=== PATIENT | female | born 1935 | race Caucasian/White ===

== ENCOUNTER 2019-09-19 08:47 | Emergency (ER) | payer MEDICARE ==
--- NOTE | 2019-09-19 09:45 | EKG REPORT ---
SEVERITY:- BORDERLINE ECG - SINUS RHYTHM BORDERLINE T ABNORMALITIES, ANTERIOR LEADS : Confirmed by: Olya San MD 19-Sep-2019 09:44:29
[2019-09-19 10:09] LABS: ABSOLUTE LYMPHOCYTES (AUTO) 0.7 10^3/uL (0.5-4.7); ABSOLUTE MONOCYTES (AUTO) 1.2 10^3/uL (0.1-1.4); ABSOLUTE NEUT (AUTO) 7.5 10^3/uL (1.7-8.2); BASOPHILS % (AUTO) 0.1 % (0-2); HEMATOCRIT 36.2 % (36.0-47.0); HEMOGLOBIN 12.1 g/dL (12.0-15.5); LYMPHOCYTES % (AUTO) 7.1 % (13-45); MEAN CORPUSCULAR HEMOGLOBIN 28.4 pg (27.0-33.4); MEAN CORPUSCULAR HGB CONC 33.5 g/dL (32.0-36.0); MEAN CORPUSCULAR VOLUME 85 fl (80-97); PLATELET COUNT 136 10^3/uL (150-450); RED BLOOD COUNT 4.27 10^6/uL (3.72-5.28); RED CELL DISTRIBUTION WIDTH 14.9 % (11.5-14.0); SEGMENTED NEUTROPHILS % (AUTO) 79.8 % (42-78); TOTAL CELLS COUNTED % (AUTO) 100 %; WHITE BLOOD COUNT 9.4 10^3/uL (4.0-10.5)
[2019-09-19 10:20] LABS: ALBUMIN 4.3 g/dL (3.5-5.0); ALKALINE PHOSPHATASE 65 U/L (38-126); ANION GAP 8 (5-19); ASPARTATE AMINO TRANSFERASE 32 U/L (14-36); BLOOD UREA NITROGEN 33 mg/dL (7-20); CALCIUM 9.1 mg/dL (8.4-10.2); CARBON DIOXIDE 28 mmol/L (22-30); CHLORIDE 103 mmol/L (98-107); CREATINE KINASE 33 U/L (30-135); GLUCOSE 141 mg/dL (75-110); TOTAL PROTEIN 7.1 g/dL (6.3-8.2)
[2019-09-19 10:32] LABS: CREATINE KINASE MB 0.61 ng/mL (<4.55)
[2019-09-19 10:33] LABS: TROPONIN I < 0.012 ng/mL
--- NOTE | 2019-09-19 11:04 | ER Document Report ---
ED General - General Chief Complaint: Epigastric Pain Stated Complaint: CHEST PRESSURE/NAUSEA/HEADACHE Primary Care Provider: CAMRON HASTINGS MD [Primary Care Provider] - Follow up as needed Mode of Arrival: Ambulatory Information source: Patient, Relative Notes: Patient is an 83-year-old female presenting to the emergency department chief complaint of chest pain and epigastric pain for the past 3 to 4 days. Patient states she has been under a lot more stress recently. Patient states that sev dominguez younger relatives have come up for a visit they came from [place] she is concerned for possible cold exposure however when talking to the patient's daughter neither of the individuals that came up had any symptomatology. Patient does have a prior history of atrial fibrillation and pacemaker placement. Patient did skip 1 of her anticoagulant pills the other day because she had dark circles around her eyes but otherwise has been taking medications as prescribed. Patient denies nausea vomiting diarrhea fevers chills cough or cold symptoms she relates mild to moderate epigastric and chest pain. TRAVEL OUTSIDE OF THE [place] IN LAST 30 DAYS: No - HPI Onset: Last week Onset/Duration: Gradual, Persistent Quality of pain: Achy, Pressure Severity: Moderate Pain Level: 2 Associated symptoms: denies: Nonproductive cough, Productive cough, Diarrhea, Nausea, Vomiting, Shortness of breath Exacerbated by: Denies Relieved by: Denies Similar symptoms previously: No Recently seen / treated by doctor: No - Related Data Allergies/Adverse Reactions: Penicillins Allergy (Unknown, Verified 09/19/19 08:58) cephalexin monohydrate [From Keflex] Allergy (Verified 09/19/19 08:58) codeine [Codeine] Allergy (Verified 09/19/19 08:58) povidone-iodine [From Betadine] Allergy (Verified 09/19/19 08:58) Soap [From Betadine] Allergy (Verified 09/19/19 08:58) tetracycline [Tetracycline] Allergy (Verified 09/19/19 08:58) Home Medications: eliquis. metoprolol. claritin. vitamins. gerd medication Past Medical History - General Information source: Patient, Relative - Social History Smoking Status: Former Smoker Chew tobacco use (# tins/day): No Frequency of alcohol use: None Drug Abuse: None Lives with: Family Family History: Reviewed & Not Pertinent Patient has suicidal ideation: No Patient has homicidal ideation: No - Past Medical History Cardiac Medical History: Reports: Hx Atrial Fibrillation Denies: Hx Heart Attack, Hx Hypertension Pulmonary Medical History: Reports: Hx Pneumonia Denies: Hx Asthma, Hx Tuberculosis Neurological Medical History: Denies: Hx Cerebrovascular Accident, Hx Seizures GI Medical History: Reports: Hx Gastroesophageal Reflux Disease. Denies: Hx Hepatitis, Hx Hiatal Hernia, Hx Ulcer Musculoskeletal Medical History: Reports Hx Arthritis Psychiatric Medical History: Reports: Hx Depression Infectious Medical History: Denies: Hx Hepatitis Past Surgical History: Reports: Hx Appendectomy, Hx Hysterectomy. Denies: Hx Open Heart Surgery, Hx Pacemaker - Immunizations Hx Diphtheria, Pertussis, Tetanus Vaccination: No Review of Systems - Review of Systems Notes: REVIEW OF SYSTEMS: CONSTITUTIONAL : Denies fever, chills, or sweats. Denies recent illness. EENT: Denies eye, ear, throat, or mouth pain or symptoms. Denies nasal or sinus congestion. CARDIOVASCULAR: Per HPI RESPIRATORY: Denies cough, cold, or chest congestion. Denies shortness of breath, difficulty breathing, or wheezing. GASTROINTESTINAL: Per HPI GENITOURINARY: Denies difficulty urinating, painful urination, burning, frequency, or blood in urine. MUSCULOSKELETAL: Denies neck or back pain or joint pain or swelling. SKIN: Denies rash or skin lesions. HEMATOLOGIC : Denies easy bruising or bleeding. NEUROLOGICAL: Denies altered mental status or loss of consciousness. Denies headache. Denies weakness or paralysis or loss of use of either side. Denies problems with gait or speech. Denies sensory or motor loss. PSYCHIATRIC: Denies suicidal or homicidal ideations 10 Systems are negative unless otherwise specified above Physical Exam - Vital signs Vitals: Temp Pulse Resp BP Pulse Ox 98.0 F 72 20 151/56 H 97 09/19/19 08:58 09/19/19 08:58 09/19/19 08:58 09/19/19 08:58 09/19/19 08:58 - Notes Notes: PHYSICAL EXAMINATION: GENERAL: Well-appearing, well-nourished and in no acute distress. HEAD: Atraumatic, normocephalic. EYES: Pupils equal round and reactive to light, extraocular movements intact, sclera anicteric, conjunctiva are normal. ENT: nares patent, oropharynx clear without exudates. Moist mucous membranes. NECK: Normal range of motion, supple without lymphadenopathy, no appreciable JVD LUNGS: Lungs clear to auscultation bilaterally and equal. No wheezes rales or rhonchi. HEART: Regular rate and rhythm without murmurs ABDOMEN: Soft, nontender, normal bowel sounds. No guarding, no rebound. No masses appreciated. EXTREMITIES: Active full range of motion, no pitting or edema. No cyanosis. 2+ pulses x4 NEUROLOGICAL: No focal neurological deficits. Moves all extremities spontaneously and on command. SKIN: Warm, Dry, and intact. Normal turgor, no rashes or lesions noted. Course - Re-evaluation Re-evalutation: 09/19/19 12:58 Patient has been maintained in the emergency department on a panel monitor while present. Patient has been reevaluated several times while in the emergency department and no signs of decompensation have been noted. After evaluation of laboratory EKG and radiologic studies I see no signs of pneumonia, pneumothorax, acute myocardial infarction, unstable angina dissection or pulmonary embolism, there are no signs of rib fractures, no signs of acute coronary syndrome and at this time feel the patient is stable for discharge. I have discussed these results with the patient answered all questions and patient is agreeable with discharge at this time. Patient should follow-up with her primary care provider in the next several days for continued monitoring. Patient should immediately return to the emergency department for worsening symptoms to include severe chest pain/tightness or discomfort, worsening shortness of breath, fever greater than 101 or other concerning signs or symptoms. - Vital Signs Vital signs: Temp Pulse Resp BP Pulse Ox 98.0 F 72 24 H 146/70 H 96 09/19/19 08:58 09/19/19 08:58 09/19/19 12:20 09/19/19 12:16 09/19/19 12:20 - Laboratory Result Diagrams: 09/19/19 09:36 09/19/19 09:36 Laboratory results interpreted by me: 09/19/19 09/19/19 09/19/19 09:36 09:36 09:36 RDW 14.9 H Plt Count 136 L Lymph % (Auto) 7.1 L Seg Neutrophils % 79.8 H BUN 33 H Glucose 141 H NT-Pro-B Natriuret Pep 661 H - Diagnostic Test Radiology reviewed: Reports reviewed - EKG Interpretation by Me EKG shows normal: Sinus rhythm Rate: Normal Rhythm: NSR When compared to previous EKG there are: Changes noted - EKG is interpreted by me demonstrates sinus rhythm rate of 75 bpm there [address] elevation there is no axis deviation there are Q waves in leads III and aVF but this is similar to prior EKG of June 24, 2015. Discharge - Discharge Clinical Impression: Chest pain of uncertain etiology, Epigastric pain Condition: Stable Disposition: HOME, SELF-CARE Additional Instructions: CHEST PAIN OF UNCLEAR CAUSE: The exact cause of your chest pain isn't clear. Fortunately, there is no evidence of a dangerous medical condition. Further testing may be required to find the source of the pain. Most often, we find that this pain is coming from the chest wall -- the muscles or rib joints in the chest. But chest pain can come from the lung and lung lining, the esophagus, the heart valves or heart lining, and even the stomach or gallbladder. Rest. Eat lightly until the pain is gone. We may prescribe medicine for pain and inflammation. You should call the physician immediately if the pain radiates to the shoulder, jaw or arms; if you start to run a fever or develop a cough; or if you develop shortness of breath, or other new or alarming symptoms. NORMAL EXAM AND WORKUP: At this time, your examination and workup show no significant abnormality. No significant abnormal physical findings were noted. All laboratory, EKG, and imaging (x-ray, CT scans, ultrasound) studies that were ordered show no significant abnormality. Although your examination and all studies that were ordered showed no significant abnormal finding, there are no examinations and no studies that are 100% accurate. There is always the possibility that some abnormality could exist and not be detected with physical examination or within the limits and capabilities of laboratory and other studies. You should return or follow up as you were instructed on your visit today for further evaluation if your symptoms do not resolve. CHEST WALL PAIN: Your chest pain may be coming from the chest wall. This is often caused by straining the muscles or joints in the chest during physical activity, direct t rauma, coughing, or vigorous vomiting. Persons with arthritis are especially prone to this type of pain, due to inflammation of the cartilage joints near the breast bone. Occasionally, no cause can be found. Rest from strenuous physical activity. This kind of chest pain is usually made worse by movement of the chest. Depending on the symptoms, we may prescribe medicine for pain, muscle relaxation, and antiinflammatory effects. If the pain is new, and seems to be due to muscle strain, cold packs can help. Otherwise, apply gentle warmth to the painful area for 15 minutes every hour or two. You should call contact the doctor immediately if things change. Further evaluation is needed if you develop a fever or cough, if the nature of the pain changes, or if you become short of breath. ANGINA EPISODE: Your physician has diagnosed the pain you experienced as an episode of angina. Angina occurs when a portion of the heart muscle temporarily lacks oxygen. It does not cause any permanent heart damage, but serves as a warning. Hospitalization is not necessary now. Evaluation of your cardiac condition, and medical therapy for angina will be necessary. It's important you be sure to keep all appointments and take medication exactly as prescribed. Angina is usually treated with a type of "nitrate" medication. This is available as ointment, pills, or sublingual (under the tongue) tablets. Depending on your clinical situation, other medications may be added to help control angina. These may include beta blockers or calcium blockers. If episodes of angina are occurring with increased frequency, or if chest pain lasts longer than 15 minutes or does not respond to nitroglycerin, you must seek emergency medical care immediately. ACID REFLUX DISEASE (GERD): Gastro-Esophageal Reflux Disease (GERD) is caused by stomach acid refluxing back up into the esophagus. The valve at the end of the esophagus may be weak. This is common in persons with a hiatal hernia. GERD symptoms can include indigestion, chest pain, heartburn, or food "sticking." Certain foods, alcohol, and aspirin can make GERD worse. Treatment depends on the severity. Usually, antacids or acid-suppressing medicines are used. When the esophagus is acutely inflamed, the physician will often prescribe membrane-protective drugs such as Carafate. Some patients benefit from medication such as Reglan that tightens the valve at the top of the stomach. Avoid those foods that bring on your symptoms. For many people, these foods are coffee, chocolate, onions, garlic, and carbonated drinks. Don't use alcohol, aspirin, caffeine, or tobacco. Don't eat late at night -- within 4 hours of bedtime. Don't over-eat. If necessary, elevate the head of your bed about 4 inches so that stomach acid will not roll up into your esophagus. Call the doctor if you develop severe chest pain, inability to swallow fluids, fever, or worsening symptoms. FOLLOW-UP CARE: If you have been referred to a physician for follow-up care, call the physicians office for an appointment as you were instructed or within the next two days. If you experience worsening or a significant change in your symptoms, notify the physician immediately or return to the Emergency Department at any time for re-evaluation. Referrals: CAMRON HASTINGS MD [Primary Care Provider] - Follow up as needed
--- NOTE | 2019-09-19 12:01 | RADIOLOGY REPORT (SQ) ---
EXAM DESCRIPTION: CHEST SINGLE VIEW IMAGES COMPLETED DATE/TIME: 09/19/2019 11:15 am REASON FOR STUDY: cp COMPARISON: 06/24/2015 EXAM PARAMETERS: NUMBER OF VIEWS: One view. TECHNIQUE: Single frontal radiographic view of the chest acquired. RADIATION DOSE: NA LIMITATIONS: None. FINDINGS: LUNGS AND PLEURA: No opacities, masses or pneumothorax. No pleural effusion. MEDIASTINUM AND HILAR STRUCTURES: No masses. Contour normal. HEART AND VASCULAR STRUCTURES: Cardiomegaly without central vascular congestion. BONES: No acute findings. HARDWARE: Interval placement of a transvenous pacer OTHER: No other significant finding. IMPRESSION: Stable cardiomegaly without demonstrated central vascular congestion. TECHNICAL DOCUMENTATION: JOB ID: [id number] 2010 [employer]- All Rights Reserved Reading location - IP/workstation name: [email or web address]
[2019-09-19 12:30] VITALS: BP 146/70
== END 2019-09-19 13:26 | disposition home or self-care (01) ==
LOC: ER 08:47
DX: R07.89 Other chest pain (principal); K21.9 Gastro-esophageal reflux disease without esophagitis; R10.13 Epigastric pain; I48.91 Unspecified atrial fibrillation; Z79.01 Long term (current) use of anticoagulants; Z79.899 Other long term (current) drug therapy; Z95.0 Presence of cardiac pacemaker; Z87.01 Personal history of pneumonia (recurrent); Z87.891 Personal history of nicotine dependence; Z90.49 Acquired absence of other specified parts of digestive tract; Z88.0 Allergy status to penicillin; Z88.1 Allergy status to other antibiotic agents; Z88.6 Allergy status to analgesic agent; Z88.5 Allergy status to narcotic agent; Z88.3 Allergy status to other anti-infective agents
CPT/HCPCS: 36415; 71045; 80053; 82550; 82553; 83690; 83880; 84484; 85025; 93005; 93010; 99285

== ENCOUNTER 2019-09-27 13:52 | Inpatient (IN) | payer MEDICARE ==
[2019-09-27 14:47] LABS: HEMATOCRIT 32.6 % (36.0-47.0); HEMOGLOBIN 10.9 g/dL (12.0-15.5); MEAN CORPUSCULAR HEMOGLOBIN 27.9 pg (27.0-33.4); MEAN CORPUSCULAR HGB CONC 33.4 g/dL (32.0-36.0); MEAN CORPUSCULAR VOLUME 83 fl (80-97); RED BLOOD COUNT 3.91 10^6/uL (3.72-5.28); RED CELL DISTRIBUTION WIDTH 14.9 % (11.5-14.0); WHITE BLOOD COUNT 8.3 10^3/uL (4.0-10.5)
[2019-09-27 15:04] LABS: ALBUMIN 3.3 g/dL (3.5-5.0); ALKALINE PHOSPHATASE 70 U/L (38-126); ANION GAP 6 (5-19); ASPARTATE AMINO TRANSFERASE 34 U/L (14-36); BILIRUBIN,TOTAL 0.9 mg/dL (0.2-1.3); BLOOD UREA NITROGEN 31 mg/dL (7-20); CALCIUM 8.6 mg/dL (8.4-10.2); CARBON DIOXIDE 26 mmol/L (22-30); CHLORIDE 106 mmol/L (98-107); CREATINE KINASE 24 U/L (30-135); GLUCOSE 127 mg/dL (75-110); POTASSIUM 3.7 mmol/L (3.6-5.0); TOTAL PROTEIN 6.2 g/dL (6.3-8.2)
[2019-09-27 15:05] LABS: ABSOLUTE LYMPHOCYTES# (MANUAL) 1.2 10^3/uL (0.5-4.7); ABSOLUTE MONOCYTES # (MANUAL) 0.7 10^3/uL (0.1-1.4); BAND NEUTROPHILS % (MANUAL) 1 % (3-5); BASOPHILS % (MANUAL) 0 % (0-2); EOSINOPHILS % (MANUAL) 1 % (0-6); LYMPHOCYTES % (MANUAL) 13 % (13-45); METAMYELOCYTES % (MANUAL) 1 % (0-1); MONOCYTES % (MANUAL) 9 % (3-13); SEGMENTED NEUTROPHILS % (MAN) 73 % (42-78); TOTAL CELLS COUNTED 100
[2019-09-27 15:08] LABS: POLYCHROMASIA SLIGHT
[2019-09-27 15:09] LABS: ANISOCYTOSIS SLIGHT; OVALOCYTES SLIGHT; PLATELET CLUMPS PRESENT; PLATELET COMMENT ADEQUATE; POIKILOCYTOSIS SLIGHT
[2019-09-27 15:10] LABS: PLATELET COUNT 250 10^3/uL (150-450)
[2019-09-27 15:31] LABS: CREATINE KINASE MB 0.73 ng/mL (<4.55)
[2019-09-27 15:32] LABS: TROPONIN I < 0.012 ng/mL
[2019-09-27 16:13] LABS: APPEARANCE,URINE CLEAR; BILIRUBIN,URINE NEGATIVE (NEGATIVE); GLUCOSE, URINE NEGATIVE (NEGATIVE); KETONES,URINE TRACE mg/dL (NEGATIVE); LEUKOCYTE ESTERASE,URINE NEGATIVE (NEGATIVE); NITRITE,URINE NEGATIVE (NEGATIVE); PROTEIN,URINE 100 mg/dL (NEGATIVE); URINE SPECIFIC GRAVITY 1.029
[2019-09-27 16:14] LABS: COLOR,URINE YELLOW
[2019-09-27] MEDS ORDERED: METOPROLOL TARTRATE 25 MG TABLET PO ONE (17:07)
[2019-09-27] MEDS ORDERED: FUROSEMIDE INJ/PF 20 MG/2 ML SDV IV ONE (17:07)
--- NOTE | 2019-09-27 17:18 | ER Document Report ---
ED General - General Chief Complaint: Syncope Stated Complaint: SYNCOPE Time Seen by Provider: 09/27/19 15:56 Primary Care Provider: CAMRON HASTINGS MD [Primary Care Provider] - Follow up as needed TRAVEL OUTSIDE OF THE [place] IN LAST 30 DAYS: No - HPI Notes: Patient is an 83-year-old female who presents to the emergency department for evaluation after syncopal episode. The patient has had shortness of breath that has been ongoing for the last 2 weeks. She states is been getting progressively worse. She states now she short of breath at rest. She really denies any orthopnea or paroxysmal nocturnal dyspnea. This morning, the patient was going to the bank. She got home. She felt more more short of breath until she had a syncopal episode, witnessed by her daughter. She has had no chest pain. She does note that her belly seems to be more swollen. She states she has been taking metoprolol 12-1/2 mg daily. She states that it had been making her tired in the past, so she cut her dose in half. She really is unsure as to whether or not her bilingual hr generalist, Dr. [facility], is aware of this. - Related Data Allergies/Adverse Reactions: Penicillins Allergy (Unknown, Verified 09/19/19 08:58) cephalexin monohydrate [From Keflex] Allergy (Verified 09/19/19 08:58) codeine [Codeine] Allergy (Verified 09/19/19 08:58) povidone-iodine [From Betadine] Allergy (Verified 09/19/19 08:58) Soap [From Betadine] Allergy (Verified 09/19/19 08:58) tetracycline [Tetracycline] Allergy (Verified 09/19/19 08:58) Home Medications: Metoprolol 12-1/2 mg daily, Eliquis twice daily, Prevacid, vit amins and supplements Past Medical History - General Information source: Patient - Social History Smoking Status: Unknown if Ever Smoked Family History: Reviewed & Not Pertinent Patient has homicidal ideation: No - Past Medical History Cardiac Medical History: Reports: Hx Atrial Fibrillation, Other - Pacemaker Denies: Hx Heart Attack, Hx Hypertension Pulmonary Medical History: Reports: Hx Pneumonia Denies: Hx Asthma, Hx Tuberculosis Neurological Medical History: Denies: Hx Cerebrovascular Accident, Hx Seizures GI Medical History: Reports: Hx Gastroesophageal Reflux Disease. Denies: Hx Hepatitis, Hx Hiatal Hernia, Hx Ulcer Musculoskeletal Medical History: Reports Hx Arthritis Psychiatric Medical History: Reports: Hx Depression Infectious Medical History: Denies: Hx Hepatitis Past Surgical History: Reports: Hx Appendectomy, Hx Hysterectomy. Denies: Hx Open Heart Surgery, Hx Pacemaker - Immunizations Hx Diphtheria, Pertussis, Tetanus Vaccination: No Review of Systems - Review of Systems Cardiovascular: See HPI Respiratory: See HPI Gastrointestinal: See HPI -: Yes All other systems reviewed and negative Physical Exam - Vital signs Vitals: Resp 25 H 09/27/19 14:06 - Notes Notes: Vital signs reviewed, please refer to chart. Head is normocephalic, atraumatic. Pupils equal round, reactive to light. Neck is supple without meningismus. Heart is irregularly irregular. Lungs reveal mild ralesand diminished in bilateral bases. Abdomen is mildly distended, nontender, normoactive bowel sounds throughout. Extremities without cyanosis, clubbing. Posterior calves are nontender. Peripheral pulses are equal. Skin is warm and dry. Patient is awake, alert, neurological exam is nonfocal. Course - Re-evaluation Re-evalutation: 09/27/19 17:20 Patient presents to the emergency department for evaluation. She has and had a syncopal episode today. Her heart rate is moderately elevated. At rest her heart rate seems to be between 106 and 110. With any sort of movement her respiratory rate and her heart rate both increased. I suspect that her atrial fibrillation has been a long time poorly controlled in regards to rate, especially since the patient is taking half of the medication she was originally prescribed. We talked at length about the function of a pacemaker, about the need for appropriate beta-blockade and atrial fibrillation. She is already appropriately anticoagulated. Laboratory investigations reveal an elevated proBNP. Her EKG does not show any ischemic changes. Her cardiac enzymes are undetectable. I spoke with Dr. Hay, who has seen this patient in the past. He agrees that a low-dose diuretic is appropriate, rate control, and observation would be indicated in this patient. I discussed this with the silver barahona who agrees. She was administered Lasix 10 mg IV. I will try just oral rate control with metoprolol here in the emergency department. I spoke with Dr. Patterson, he graciously accepted the patient for further care. 09/27/19 17:23 Please note chest x-ray was just performed and I found a left-sided pleural effusion. I do not have a high suspicion that this is infectious, I believe it is likely transudate of secondary to her increased heart rate, but I do believe this may warrant longer observation in the hospital. I will speak with Dr. Patterson, but suspect this patient will require admission rather than observation. - Vital Signs Vital signs: Temp Pulse Resp BP Pulse Ox 98.7 F 22 H 137/102 H 93 09/27/19 14:41 09/27/19 14:09 09/27/19 14:09 09/27/19 14:09 - Laboratory Result Diagrams: 09/27/19 14:10 09/27/19 14:10 Laboratory results interpreted by me: 09/27/19 09/27/19 09/27/19 14:10 14:10 14:10 Hgb 10.9 L Hct 32.6 L RDW 14.9 H Band Neutrophils % 1 L BUN 31 H Glucose 127 H Creatine Kinase 24 L NT-Pro-B Natriuret Pep 2670 H Total Protein 6.2 L Albumin 3.3 L Urine Protein Urine Ketones Urine Urobilinogen Urine Ascorbic Acid 09/27/19 15:47 Hgb Hct RDW Band Neutrophils % BUN Glucose Creatine Kinase NT-Pro-B Natriuret Pep Total Protein Albumin Urine Protein 100 H Urine Ketones TRACE H Urine Urobilinogen 4.0 H Urine Ascorbic Acid 40 H - Diagnostic Test Radiology reviewed: Image reviewed Radiology results interpreted by me: 09/27/19 17:23 Large left pleural effusion - EKG Interpretation by Me Additional EKG results interpreted by me: 09/27/19 17:21 Atrial fibrillation with a rate of 123 bpm. PVC noted. Normal axis and intervals. No acute ST elevation concerning for infarction. Old EKGs were sinus rhythm. Discharge - Discharge Clinical Impression: Syncope, Rapid atrial fibrillation, Pleural effusion, left Condition: Stable Disposition: ADMITTED INPATIENT Admitting Provider: Yesenia (Hospitalist) Unit Admitted: Telemetry Referrals: CAMRON HASTINGS MD [Primary Care Provider] - Follow up as needed
--- NOTE | 2019-09-27 17:28 | RADIOLOGY REPORT (SQ) ---
EXAM DESCRIPTION: CHEST SINGLE VIEW IMAGES COMPLETED DATE/TIME: 09/27/2019 5:17 pm REASON FOR STUDY: dyspnea COMPARISON: 09/19/2019 EXAM PARAMETERS: NUMBER OF VIEWS: One view. TECHNIQUE: Single frontal radiographic view of the chest acquired. RADIATION DOSE: NA LIMITATIONS: None. FINDINGS: LUNGS AND PLEURA: Interval development of a left-sided pleural effusion. The visualized l ungs are clear. There is no pneumothorax. MEDIASTINUM AND HILAR STRUCTURES: No masses. Contour normal. HEART AND VASCULAR STRUCTURES: Re- demonstration of cardiomegaly. Normal central vasculature. BONES: No acute findings. HARDWARE: Transvenous pacer, stable. OTHER: No other significant finding. IMPRESSION: Cardiomegaly. Given unilaterality of pulmonary findings, favor infectious etiology. TECHNICAL DOCUMENTATION: JOB ID: [id number] 2010 [employer]- All Rights Reserved Reading location - IP/workstation name: [email or web address]
--- NOTE | 2019-09-27 18:23 | EKG REPORT ---
SEVERITY:- ABNORMAL ECG - ATRIAL FIBRILLATION, V-RATE 66-169 MULTIFORM VENTRICULAR PREMATURE COMPLEXES NONSPECIFIC ST-T CHANGES DIFFUSE : Confirmed by: Mohan Kendrick MD 27-Sep-2019 18:22:35
[2019-09-27] MEDS ORDERED: ACETAMINOPHEN 325 MG TABLET PO PRN (18:40)
[2019-09-27] MEDS ORDERED: MAGNESIUM HYDROXIDE SUSP 30 ML UDCUP PO PRN (18:40)
[2019-09-27] MEDS ORDERED: METOPROLOL TARTRATE PF/INJ 5 MG/5 ML SDV IV PRN (18:56)
--- NOTE | 2019-09-27 19:17 | PDOC H&P ---
History of Present Illness Admission Date/PCP: 09/27/19 17:33 CAMRON HASTINGS MD Patient complains of: Syncope History of Present Illness: BRANDON RAYMUNDO is a 83 year old female with a history of hypertension and atrial fibrillation. The atrial fibrillation started approximately 8 months ago. She had a pacemaker implant approximately 4 years ago for chronic bradycardia. Patient reports that she was in the emergency department 1 week ago. She had similar symptoms but not this bad. She states that she has been getting lightheaded when she changes position. She has been quite fatigued and feeling weak. She has been slowly getting more short of breath. She did start to notice some swelling in the extremities. The shortness of breath progressed until she was short of breath at rest. She denies chest pain, pressure or palpitations during the previous several weeks. She denies fever, chills or productive cough. 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 Because of the recent diagnosis of atrial fibrillation she has been on metoprolol and Eliquis. On examination the emergency department she was found to have atrial fibrillation with rapid ventricular response. Chest x-ray revealed large left pleural effusion. Surprisingly she remains well oxygenated on room air. Laboratory studies reveal an elevated brain natruretic peptide at 2670. Her first troponin is 0.012. BUN is slightly elevated at 31. White blood cell count is 8.3 with a hemoglobin of 10.9 and platelet count of 250,000. Urinalysis is not reflective of an infection. The patient will be admitted to telemetry on the hospitalist service. Dr. Hay will consult. We will increase her metoprolol to achieve rate control. At this time her medications have not been reconciled and the patient did not know her current medication regimen. I have ordered as needed IV metoprolol until I can start her regular medication regimen. Past Medical History Cardiac Medical History: Reports: Atrial Fibrillation, Other - Pacemaker Denies: Myocardial Infarction, Hypertension Pulmonary Medical History: Reports: Pneumonia Denies: Asthma, Tuberculosis Neurological Medical History: Denies: Ischemic CVA, Seizures Endocrine Medical History: Denies: Diabetes Mellitus Type 2 Renal/ Medical History: Denies: Chronic Kidney Disease GI Medical History: Reports: Gastroesophageal Reflux Disease Denies: Hepatitis, Hiatal Hernia Musculoskeltal Medical History: Reports: Arthritis Skin Medical History: Denies: Eczema, Psoriasis Psychiatric Medical History: Reports: Depression Denies: Alcohol Dependency, Substance Abuse, Tobacco Dependency Hematology: Reports: Anemia - WITH SURGERY Denies: Sickle Cell Disease Past Surgical History Past Surgical History: Reports: Appendectomy, Hysterectomy Denies: Amputation, Pacemaker Social History Information Source: Patient Lives with: Alone Smoking Status: Former Smoker Electronic Cigarette use?: No Frequency of Alcohol Use: Rare Hx Recreational Drug Use: No Hx Prescription Drug Abuse: No - Advance Directive Resuscitation Status: Do Not Resuscitate Surrogate healthcare decision maker:: The patient's children would be the next designated decision makers Family History Family History: Malignancy - Lymphoma, Other - Atrial fibrillation Parental Family History Reviewed: Yes Children Family History Reviewed: Yes Sibling(s) Family History Reviewed.: Yes Medication/Allergy Home Medications: Alprazolam [Xanax 0.5 mg Tablet] 0.25 mg PO DAILY 06/28/14 Cholecalciferol (Vitamin D3) [Vitamin D] 1,000 unit PO DAILY 06/28/14 Glucosamine Sulfate Dipot Chlr [Glucosamine] 1,000 mg PO DAILY 06/28/14 Lansoprazole [Prevacid] 30 mg PO DAILY 06/28/14 Loratadine [Claritin 10 mg Tablet] 10 mg PO DAILY 06/28/14 [place]-3 Fatty Acids/Fish Oil [[place] 3 Fish Oil Softgel] 1 each PO DAILY 06/28/14 Escitalopram Oxalate [Lexapro 10 mg Tablet] 10 mg PO QHS #30 tablet 06/29/14 Allergies/Adverse Reactions: Penicillins Allergy (Unknown, Verified 09/19/19 08:58) cephalexin monohydrate [From Keflex] Allergy (Verified 09/19/19 08:58) codeine [Codeine] Allergy (Verified 09/19/19 08:58) povidone-iodine [From Betadine] Allergy (Verified 09/19/19 08:58) Soap [From Betadine] Allergy (Verified 09/19/19 08:58) tetracycline [Tetracycline] Allergy (Verified 09/19/19 08:58) Review of Systems All systems: reviewed and no additional remarkable complaints except as stated Constitutional: PRESENT: other - Staff attending Nose, Mouth, and Throat: PRESENT: other - Occasional sinus infection Respiratory: PRESENT: dyspnea Gastrointestinal: PRESENT: heartburn Physical Exam Vital Signs: Temp Pulse Resp BP Pulse Ox 98.7 F 22 H 137/102 H 93 09/27/19 14:41 09/27/19 14:09 09/27/19 14:09 09/27/19 14:09 General appearance: PRESENT: no acute distress, cooperative, well-developed Head exam: PRESENT: atraumatic, normocephalic Eye exam: PRESENT: conjunctiva pink, EOMI. ABSENT: scleral icterus Ear exam: PRESENT: normal external ear exam. ABSENT: bleeding, drainage Mouth exam: PRESENT: dry mucosa, tongue midline Teeth exam: PRESENT: edentulous - Upper and lower dentures Neck exam: ABSENT: carotid bruit, JVD, lymphadenopathy Respiratory exam: PRESENT: decreased breath sounds - On the left, symmetrical, tachypnea, unlabored. ABSENT: rhonchi, wheezes Cardiovascular exam: PRESENT: irregular rhythm GI/Abdominal exam: PRESENT: normal bowel sounds, soft. ABSENT: distended, tenderness Rectal exam: PRESENT: deferred Gentrourinary exam: ABSENT: indwelling catheter Extremities exam: ABSENT: joint swelling, pedal edema Musculoskeletal exam: PRESENT: ambulatory, normal inspection. ABSENT: deformity, dislocation Neurological exam: PRESENT: alert, awake, oriented to person, oriented to place, oriented to time, oriented to situation, CN II-XII grossly intact. ABSENT: altered, motor sensory deficit Psychiatric exam: PRESENT: appropriate affect, normal mood. ABSENT: agitated, anxious Focused psych exam: ABSENT: delusional, paranoid, restlessness Skin exam: PRESENT: dry, normal color, warm. ABSENT: rash Results Laboratory Results: 09/27/19 14:10 09/27/19 14:10 09/27/19 09/27/19 09/27/19 14:10 14:10 15:47 WBC 8.3 RBC 3.91 Hgb 10.9 L Hct 32.6 L MCV 83 MCH 27.9 MCHC 33.4 RDW 14.9 H Plt Count 250 Seg Neutrophils % Not Reportable Sodium 137.9 Potassium 3.7 Chloride 106 Carbon Dioxide 26 Anion Gap 6 BUN 31 H Creatinine 0.65 Est GFR ( Amer) > 60 Glucose 127 H Calcium 8.6 Total Bilirubin 0.9 AST 34 Alkaline Phosphatase 70 Total Protein 6.2 L Albumin 3.3 L Urine Color YELLOW Urine Appearance CLEAR Urine pH 5.0 Ur Specific [place] 1.029 Urine Protein 100 H Urine Glucose (UA) NEGATIVE Urine Ketones TRACE H Urine Blood NEGATIVE Urine Nitrite NEGATIVE Ur Leukocyte Esterase NEGATIVE Urine WBC (Auto) 5 Urine RBC (Auto) 5 09/27/19 09/27/19 09/27/19 14:10 14:10 14:10 Creatine Kinase 24 L CK-MB (CK-2) 0.73 Troponin I < 0.012 NT-Pro-B Natriuret Pep 2670 H Impressions: Chest X-Ray 09/27/19 17:03 IMPRESSION: Cardiomegaly. Given unilaterality of pulmonary findings, favor infectious etiology. Assessment and Plan - Diagnosis (1) Rapid atrial fibrillation Is this a current diagnosis for this admission?: Yes Plan: While awaiting medication reconciliation she will have intravenous metoprolol ta rtrate available for tachycardia. Once the medications are reconciled I will likely start her at a slightly increased dose of her metoprolol and adjust based on her response. Cardiology will be seeing the patient in the morning. (2) Pleural effusion, left Is this a current diagnosis for this admission?: Yes Plan: Likely multifactorial with rapid atrial fibrillation most significant. Will gently diurese. The patient is adequately oxygenating on room air therefore no kraus for thoracentesis. We would have to discontinue her anticoagulants for several days if we do pursue a procedure. Continue to monitor intake and output as well. (3) Longstanding persistent atrial fibrillation Is this a current diagnosis for this admission?: Yes Plan: Monitor on telemetry. Adjust medications to achieve good rate control. Continue anticoagulation at this time. (4) Syncope Qualifiers: Syncope type: unspecified Qualified Code(s): R55 - Syncope and collapse Is this a current diagnosis for this admission?: Yes Plan: It is likely that the patient was experiencing uncontrolled atrial fibrillation. She likely had orthostasis because of this and had a syncopal episode. We will continue to monitor closely. If necessary orthostatic checks. (5) Chronic anticoagulation Is this a current diagnosis for this admission?: Yes Plan: Continue Eliquis. - Time Time Spent with patient: 35 or more minutes Medications reviewed and adjusted accordingly: Yes Anticipated discharge: Home - Inpatient Certification Based on my medical assessment, after consideration of the patient's comorbidities, presenting symptoms, or acuity I expect that the services needed warrant INPATIENT care.: Yes I certify that my determination is in accordance with my understanding of Medicare's requirements for reasonable and necessary INPATIENT services [42 CFR 412.3e].: Yes Medical Necessity: Need Close Monitoring Due to Risk of Patient Decompensation, Need For Continuous Telemetry Monitoring 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
[2019-09-27] MEDS: FUROSEMIDE INJ/PF 20 MG/2 ML SDV IV SCH (23:44)
[2019-09-28 04:06] LABS: HEMATOCRIT 31.6 % (36.0-47.0); HEMOGLOBIN 10.7 g/dL (12.0-15.5); MEAN CORPUSCULAR HEMOGLOBIN 28.1 pg (27.0-33.4); MEAN CORPUSCULAR HGB CONC 33.8 g/dL (32.0-36.0); MEAN CORPUSCULAR VOLUME 83 fl (80-97); PLATELET COUNT 250 10^3/uL (150-450); RED BLOOD COUNT 3.79 10^6/uL (3.72-5.28); RED CELL DISTRIBUTION WIDTH 15.2 % (11.5-14.0); WHITE BLOOD COUNT 8.7 10^3/uL (4.0-10.5)
[2019-09-28 04:13] LABS: ANION GAP 6 (5-19); BLOOD UREA NITROGEN 28 mg/dL (7-20); CALCIUM 8.5 mg/dL (8.4-10.2); CARBON DIOXIDE 28 mmol/L (22-30); CHLORIDE 105 mmol/L (98-107); GLUCOSE 118 mg/dL (75-110); POTASSIUM 3.4 mmol/L (3.6-5.0)
[2019-09-28 04:27] LABS: ABSOLUTE LYMPHOCYTES# (MANUAL) 1.6 10^3/uL (0.5-4.7); ABSOLUTE MONOCYTES # (MANUAL) 0.4 10^3/uL (0.1-1.4); BASOPHILS % (MANUAL) 0 % (0-2); EOSINOPHILS % (MANUAL) 0 % (0-6); HYPOCHROMASIA SLIGHT; LYMPHOCYTES % (MANUAL) 16 % (13-45); METAMYELOCYTES % (MANUAL) 1 % (0-1); MONOCYTES % (MANUAL) 5 % (3-13); SEGMENTED NEUTROPHILS % (MAN) 76 % (42-78); TOTAL CELLS COUNTED 100
[2019-09-28 04:28] LABS: ANISOCYTOSIS SLIGHT; OVALOCYTES SLIGHT; PLATELET CLUMPS PRESENT; PLATELET COMMENT ADEQUATE; PLATELET GIANT PRESENT; PLATELET LARGE PRESENT
[2019-09-28] MEDS: PANTOPRAZOLE SODIUM 20 MG TABLET.DR PO SCH (06:04)
--- NOTE | 2019-09-28 08:15 | PDOC CONSULTATION ---
Consultation Consult Date: 09/28/19 Attending physician:: TOM NORTON Provider Consulted: DAVID MCCARTY Consult reason:: Atrial fibrillation History of Present Illness Admission Date/PCP: 09/27/19 17:33 CAMRON HASTINGS MD History of Present Illness: BRANDON RAYMUNDO is a 83 year old female with history of hypertension, syncope and dizziness, found to have sick sinus syndrome and atrial tachycardia status post pacemaker on July 20, 2015 who returns is consulted to our service for further recommendations regarding atrial fibrillation with rapid ventricular res ponse after she presented to our facility with positional lightheadedness, generalized fatigue, shortness of breath at rest, lower extremity edema and palpitations. She had been followed by Dr. Singh who started the patient on anticoagulation several months ago after her atrial fibrillation became more persistent and frequent. Of note, her stress test in December 2016 was a submaximal test as her heart rate was blunted by her beta teo but there was no evidence of ischemia or anginal equivalents at the achieved workload of 4.1 mets. The patient is resting comfortably in her bed this morning and without any cardiac complaints. Her troponins are negative x3 and her BNP is slightly elevated with evidence of left pleural effusion, cardiomegaly and the possibility of infection on chest x-ray on 09/27/2019. Her telemetry shows atrial fibrillation with occasional episodes of rapid ventricular response and intermittently ventricularly paced. Outpatient medications: 1. ALPRAZolam 0.5 MG Oral Tablet; Take 1/2 tablet by mouth as needed 2. B-12 1000 MCG Sublingual Tablet Sublingual 3. Claritin 10 MG Oral Capsule; once daily 4. Co Q 10 CAPS; TAKE 1 CAPSULE DAILY 5. Eliquis 5 MG Oral Tablet; take 1 tab twice daily 6. Glucosamine Chondroitin Adv TABS; TAKE 1 TABLET DAILY DIRECTED 7. hydroCHLOROthiazide 25 MG Oral Tablet; TAKE 0.5 TABLET DAILY 8. Metoprolol Succinate ER 25 MG Oral Tablet Extended Release 24 Hour; TAKE ONE TABLET BY MOUTH EVERY DAY 9. [place]-3 Fish Oil CAPS; TAKE 1 CAPSULE DAILY 10. Prevacid 30 MG Oral Capsule Delayed Release; TAKE 1 CAPSULE Daily In The Morning 30 MIN BEFORE MEALS 11. Sertraline HCl - 50 MG Oral Tablet; TAKE 1 TABLET DAILY 12. Vitamin D 1000 UNIT TABS Physical exam on 09/28/2019: GENERAL: Pleasant and conversational. Oriented x3 with normal mood. Not in acute distress. Well groomed and well developed. HEENT: Normocephalic, atraumatic. Pupils equal. Sclerae anicteric. Oropharynx moist. NECK: No JVD. No carotid bruits. LUNGS: Clear to auscultation bilaterally. Normal respiratory effort without the use of accessory muscles or intercostal retractions. CARDIOVASCULAR: Irregularly irregular rate and rhythm, normal S1 and S2 without murmurs, rubs, or gallops. PMI not displaced. EXTREMITIES: No edema, no cyanosis, no clubbing. +2 pulses femoral and pedal pulses bilaterally. SKIN: No lesions or rashes. MUSCULOSKELETAL: No chest tenderness to palpation. NEUROLOGIC: Nonfocal. No gross sensory or motor deficits bilateral upper or lower extremities. Past Medical History Cardiac Medical History: Reports: Atrial Fibrillation, Other - Pacemaker Denies: Myocardial Infarction, Hypertension Pulmonary Medical History: Reports: Pneumonia Denies: Asthma, Tuberculosis Neurological Medical History: Denies: Ischemic CVA, Seizures Endocrine Medical History: Denies: Diabetes Mellitus Type 2 Renal/ Medical History: Denies: Chronic Kidney Disease GI Medical History: Reports: Gastroesophageal Reflux Disease Denies: Hepatitis, Hiatal Hernia Musculoskeltal Medical History: Reports: Arthritis Skin Medical History: Denies: Eczema, Psoriasis Psychiatric Medical History: Reports: Depression Denies: Alcohol Dependency, Substance Abuse, Tobacco Dependency Hematology: Reports: Anemia - WITH SURGERY Denies: Sickle Cell Disease Past Surgical History Past Surgical History: Reports: Appendectomy, Hysterectomy Denies: Amputation, Pacemaker Social History Lives with: Alone Smoking Status: Former Smoker Cigarettes Packs Per Day: 1 Electronic Cigarette use?: No Number of Years Smokin Last Time Smoked: 50 years Frequency of Alcohol Use: None Hx Recreational Drug Use: No Hx Prescription Drug Abuse: No - Advance Directive Resuscitation Status: Do Not Resuscitate Family History Family History: Malignancy - Lymphoma, Other - Atrial fibrillation Parental Family History Reviewed: Yes Children Family History Reviewed: Yes Sibling(s) Family History Reviewed.: Yes Medication/Allergy Home Medications: Apixaban [Eliquis 5 mg Tablet] 5 mg PO BID 09/27/19 Metoprolol Succinate [Toprol Xl 25 mg Tab.sr] 25 mg PO DAILY 09/27/19 Allergies/Adverse Reactions: Penicillins Allergy (Unknown, Verified 09/19/19 08:58) cephalexin monohydrate [From Keflex] Allergy (Verified 09/19/19 08:58) codeine [Codeine] Allergy (Verified 09/19/19 08:58) povidone-iodine [From Betadine] Allergy (Verified 09/19/19 08:58) Soap [From Betadine] Allergy (Verified 09/19/19 08:58) tetracycline [Tetracycline] Allergy (Verified 09/19/19 08:58) Physical Exam Vital Signs: Temp Pulse Resp BP Pulse Ox 98.7 F 100 18 136/74 H 93 09/28/19 00:41 09/28/19 02:00 09/28/19 00:41 09/28/19 00:41 09/28/19 00:41 Intake & Output 09/26/19 09/27/19 09/28/19 06:59 06:59 06:59 Intake Total 240 Balance 240 Weight 68.6 kg Results Laboratory Results: 09/28/19 03:44 09/28/19 03:44 09/27/19 09/27/19 09/27/19 14:10 14:10 15:47 WBC 8.3 RBC 3.91 Hgb 10.9 L Hct 32.6 L MCV 83 MCH 27.9 MCHC 33.4 RDW 14.9 H Plt Count 250 Seg Neutrophils % Not Reportable Sodium 137.9 Potassium 3.7 Chloride 106 Carbon Dioxide 26 Anion Gap 6 BUN 31 H Creatinine 0.65 Est GFR ( Amer) > 60 Glucose 127 H Calcium 8.6 Magnesium Total Bilirubin 0.9 AST 34 Alkaline Phosphatase 70 Total Protein 6.2 L Albumin 3.3 L Urine Color YELLOW Urine Appearance CLEAR Urine pH 5.0 Ur Specific [place] 1.029 Urine Protein 100 H Urine Glucose (UA) NEGATIVE Urine Ketones TRACE H Urine Blood NEGATIVE Urine Nitrite NEGATIVE Ur Leukocyte Esterase NEGATIVE Urine WBC (Auto) 5 Urine RBC (Auto) 5 09/28/19 09/28/19 03:44 03:44 WBC 8.7 RBC 3.79 Hgb 10.7 L Hct 31.6 L MCV 83 MCH 28.1 MCHC 33.8 RDW 15.2 H Plt Count 250 Seg Neutrophils % Not Reportable Sodium 139.0 Potassium 3.4 L Chloride 105 Carbon Dioxide 28 Anion Gap 6 BUN 28 H Creatinine 0.68 Est GFR ( Amer) > 60 Glucose 118 H Calcium 8.5 Magnesium 1.9 Total Bilirubin AST Alkaline Phosphatase Total Protein Albumin Urine Color Urine Appearance Urine pH Ur Specific [place] Urine Protein Urine Glucose (UA) Urine Ketones Urine Blood Urine Nitrite Ur Leukocyte Esterase Urine WBC (Auto) Urine RBC (Auto) 09/27/19 09/27/19 09/27/19 14:10 14:10 14:10 Creatine Kinase 24 L CK-MB (CK-2) 0.73 Troponin I < 0.012 NT-Pro-B Natriuret Pep 2670 H 09/27/19 09/28/19 21:36 03:44 Creatine Kinase CK-MB (CK-2) Troponin I < 0.012 < 0.012 NT-Pro-B Natriuret Pep Impressions: Chest X-Ray 09/27/19 17:03 IMPRESSION: Cardiomegaly. Given unilaterality of pulmonary findings, favor infectious etiology. 09/28/19 03:44 09/28/19 03:44 MCV 83 fl (80-97) 09/28/19 03:44 MCH 28.1 pg (27.0-33.4) 09/28/19 03:44 MCHC 33.8 g/dL (32.0-36.0) 09/28/19 03:44 RDW 15.2 % (11.5-14.0) H 09/28/19 03:44 Seg Neutrophils % Not Reportable 09/28/19 03:44 Chloride 105 mmol/L (98-107) 09/28/19 03:44 Carbon Dioxide 28 mmol/L (22-30) 09/28/19 03:44 Anion Gap 6 (5-19) 09/28/19 03:44 Est GFR ( Amer) > 60 (>60) 09/28/19 03:44 Glucose 118 mg/dL (75-110) H 09/28/19 03:44 Calcium 8.5 mg/dL (8.4-10.2) 09/28/19 03:44 Magnesium 1.9 mg/dL (1.6-2.3) 09/28/19 03:44 Total Bilirubin 0.9 mg/dL (0.2-1.3) 09/27/19 14:10 AST 34 U/L (14-36) 09/27/19 14:10 Alkaline Phosphatase 70 U/L (38-126) 09/27/19 14:10 Total Protein 6.2 g/dL (6.3-8.2) L 09/27/19 14:10 Albumin 3.3 g/dL (3.5-5.0) L 09/27/19 14:10 Urine Color YELLOW 09/27/19 15:47 Urine Appearance CLEAR 09/27/19 15:47 Urine pH 5.0 (5.0-9.0) 09/27/19 15:47 Ur Specific [place] 1.029 09/27/19 15:47 Urine Protein 100 mg/dL (NEGATIVE) H 09/27/19 15:47 Urine Glucose (UA) NEGATIVE mg/dL (NEGATIVE) 09/27/19 15:47 Urine Ketones TRACE mg/dL (NEGATIVE) H 09/27/19 15:47 Urine Blood NEGATIVE (NEGATIVE) 09/27/19 15:47 Urine Nitrite NEGATIVE (NEGATIVE) 09/27/19 15:47 Ur Leukocyte Esterase NEGATIVE (NEGATIVE) 09/27/19 15:47 Urine WBC (Auto) 5 /HPF 09/27/19 15:47 Urine RBC (Auto) 5 /HPF 09/27/19 15:47 09/27/19 09/27/19 09/27/19 14:10 14:10 14:10 Creatine Kinase 24 L CK-MB (CK-2) 0.73 Troponin I < 0.012 NT-Pro-B Natriuret Pep 2670 H 09/27/19 09/28/19 21:36 03:44 Creatine Kinase CK-MB (CK-2) Troponin I < 0.012 < 0.012 NT-Pro-B Natriuret Pep Current Medication List Generic Name Dose Route Start Last Admin Trade Name Ismael PRN Reason Stop Dose Admin Acetaminophen 650 mg 09/27/19 18:40 Tylenol 325 Mg Tablet PO 10/27/19 18:39 Q4HP PRN FOR PAIN OR TEMP Al Hydrox/Mg Hydrox/Simethicone 30 ml 09/27/19 18:40 Maalox Plus Susp 30 Udcup PO 10/27/19 18:39 Q6HP PRN HEARTBURN Apixaban 2.5 mg 09/28/19 10:00 Eliquis 2.5 Mg Tablet PO 10/28/19 09:59 BID MICHAEL Furosemide 10 mg 09/27/19 22:00 09/27/19 23:44 Lasix Inj/Pf 20 Mg/2 Ml Sdv IV 10/27/19 21:59 10 mg Q12 MICHAEL Administration Magnesium Hydroxide 30 ml 09/27/19 18:40 Milk Of Magnesia 30 Ml Udcup PO 10/27/19 18:39 HSP PRN FOR CONSTIPATION Metoprolol Tartrate 5 mg 09/27/19 18:56 Lopressor Inj/Pf 5 Mg/5 Ml Sdv IV 10/27/19 18:55 Q6HP PRN Give For Hr > 120 Pantoprazole Sodium 20 mg 09/28/19 06:00 09/28/19 06:[address] Tablet PO 10/28/19 05:59 20 mg Q6AM MICHAEL Administration Sodium Chloride 2.5 ml 09/28/19 06:00 09/28/19 06:04 Saline Flush 2.5 Ml Monoject Prefil Syrin IV 10/28/19 05:59 2.5 ml Q8 MICHAEL Administration Discontinued Medications Generic Name Dose Route Start Last Admin Trade Name Freq PRN Reason Stop Dose Admin Apixaban 5 mg 09/28/19 10:00 Eliquis 5 Mg Tablet PO 10/28/19 09:59 BID MICHAEL Furosemide 10 mg 09/27/19 17:07 09/27/19 18:49 Lasix Inj/Pf 20 Mg/2 Ml Sdv IV 09/27/19 17:08 10 mg NOW ONE Administration Metoprolol Tartrate 25 mg 09/27/19 17:07 09/27/19 18:48 Lopressor 25 Mg Tablet PO 09/27/19 17:08 25 mg NOW ONE Administration Assessment & Plan - Diagnosis (1) Longstanding persistent atrial fibrillation Is this a current diagnosis for this admission?: Yes Plan: The patient feels improved since admission however she continues to have episodes of RVR. Recommendations: -Resume metoprolol succinate 25 mg daily, may titrate up depending on heart rate response when walking around the floor. Of note, the patient has a pacemaker. -If creatinine less than 1.5 and weight greater than 60 kg, increase Eliquis to 5 mg twice daily. -We will continue to follow-up with you. (2) Heart failure Is this a current diagnosis for this admission?: Yes Plan: The patient had an elevated proBNP as well as a pleural effusion and symptoms consistent with heart failure. She feels much better today. Unfortunately her intake and output is not accurate. She ruled out for acute MA with 3 sets of negative troponins. Recommendations: -Transition Lasix IV to 20 mg p.o. daily. -Start DELONTE inhibitor or ARB of your choice. -Echocardiogram to assess for structural heart disease. -Restrict fluid intake to 1500 cc daily. -Low sodium diet, less than 1500 mg daily. -Strict intake and output. -Daily weights.
[2019-09-28] MEDS: FUROSEMIDE INJ/PF 20 MG/2 ML SDV IV SCH ×2 (09:47→21:43)
[2019-09-28] MEDS ORDERED: APIXABAN 5 MG TABLET PO SCH (10:00)
[2019-09-28] MEDS ORDERED: APIXABAN 2.5 MG TABLET PO SCH (10:00)
[2019-09-28] MEDS ORDERED: METOPROLOL SUCCINATE 25 MG TAB.SR.24H PO SCH (12:00)
--- NOTE | 2019-09-28 12:05 | PDOC PROGRESS REPORT ---
Subjective Progress Note for:: 09/28/19 Subjective:: Still with tachycardia especially when she gets up. Remains on room air. Reason For Visit: CHRONIC PERSISTENT ATRIAL FIBRILLATION, PLEURAL Physical Exam Vital Signs: Temp Pulse Resp BP Pulse Ox 98.0 F 62 17 133/76 H 95 09/28/19 08:11 09/28/19 08:11 09/28/19 08:11 09/28/19 08:11 09/28/19 08:11 Intake & Output 09/27/19 09/28/19 09/29/19 06:59 06:59 06:59 Intake Total 240 Balance 240 Weight 68.6 kg General appearance: PRESENT: no acute distress, cooperative, well-developed Head exam: PRESENT: atraumatic, normocephalic Ear exam: PRESENT: normal external ear exam. ABSENT: bleeding, drainage Mouth exam: PRESENT: moist, tongue midline Respiratory exam: PRESENT: decreased breath sounds - Left base, unlabored. ABSENT: rhonchi, tachypnea, wheezes Cardiovascular exam: PRESENT: irregular rhythm GI/Abdominal exam: PRESENT: distended, normal bowel sounds, soft. ABSENT: guarding, tenderness Rectal exam: PRESENT: deferred Gentrourinary exam: ABSENT: indwelling catheter Extremities exam: ABSENT: pedal edema Musculoskeletal exam: PRESENT: ambulatory, normal inspection Neurological exam: PRESENT: alert, awake, oriented to person, oriented to place, oriented to time, oriented to situation, CN II-XII grossly intact. ABSENT: altered Psychiatric exam: PRESENT: flat affect. ABSENT: agitated, anxious Focused psych exam: ABSENT: delusional, paranoid, restlessness Skin exam: PRESENT: dry, normal color, warm. ABSENT: rash Results Laboratory Results: 09/28/19 03:44 09/28/19 03:44 09/27/19 09/27/19 09/27/19 14:10 14:10 15:47 WBC 8.3 RBC 3.91 Hgb 10.9 L Hct 32.6 L MCV 83 MCH 27.9 MCHC 33.4 RDW 14.9 H Plt Count 250 Seg Neutrophils % Not Reportable Sodium 137.9 Potassium 3.7 Chloride 106 Carbon Dioxide 26 Anion Gap 6 BUN 31 H Creatinine 0.65 Est GFR ( Amer) > 60 Glucose 127 H Calcium 8.6 Magnesium Total Bilirubin 0.9 AST 34 Alkaline Phosphatase 70 Total Protein 6.2 L Albumin 3.3 L Urine Color YELLOW Urine Appearance CLEAR Urine pH 5.0 Ur Specific [place] 1.029 Urine Protein 100 H Urine Glucose (UA) NEGATIVE Urine Ketones TRACE H Urine Blood NEGATIVE Urine Nitrite NEGATIVE Ur Leukocyte Esterase NEGATIVE Urine WBC (Auto) 5 Urine RBC (Auto) 5 09/28/19 09/28/19 03:44 03:44 WBC 8.7 RBC 3.79 Hgb 10.7 L Hct 31.6 L MCV 83 MCH 28.1 MCHC 33.8 RDW 15.2 H Plt Count 250 Seg Neutrophils % Not Reportable Sodium 139.0 Potassium 3.4 L Chloride 105 Carbon Dioxide 28 Anion Gap 6 BUN 28 H Creatinine 0.68 Est GFR ( Amer) > 60 Glucose 118 H Calcium 8.5 Magnesium 1.9 Total Bilirubin AST Alkaline Phosphatase Total Protein Albumin Urine Color Urine Appearance Urine pH Ur Specific [place] Urine Protein Urine Glucose (UA) Urine Ketones Urine Blood Urine Nitrite Ur Leukocyte Esterase Urine WBC (Auto) Urine RBC (Auto) 09/27/19 09/27/19 09/27/19 14:10 14:10 14:10 Creatine Kinase 24 L CK-MB (CK-2) 0.73 Troponin I < 0.012 NT-Pro-B Natriuret Pep 2670 H 09/27/19 09/28/19 21:36 03:44 Creatine Kinase CK-MB (CK-2) Troponin I < 0.012 < 0.012 NT-Pro-B Natriuret Pep Impressions: Chest X-Ray 09/27/19 17:03 IMPRESSION: Cardiomegaly. Given unilaterality of pulmonary findings, favor infectious etiology. Assessment and Plan - Diagnosis (1) Rapid atrial fibrillation Is this a current diagnosis for this admission?: Yes Plan: Medications have been reconciled with the patient will resume her metoprolol succinate 25 mg daily. We will adjust based on her heart rate and blood pressure. She does have a pacemaker to protect against bradycardia. She still has heart rates above 100. This is usually when she is more active such as walking to the bathroom. (2) Pleural effusion, left Is this a current diagnosis for this admission?: Yes Plan: The patient remains on room air. We will attempt diuresis first. If the patient deteriorates then consideration of a thoracentesis to resolve symptoms. This could also be done as an outpatient if she is stable as she would have to stop her anticoagulants. (3) Longstanding persistent atrial fibrillation Is this a current diagnosis for this admission?: Yes Plan: Continue metoprolol and apixaban (4) Syncope Qualifiers: Syncope type: unspecified Qualified Code(s): R55 - Syncope and collapse Is this a current diagnosis for this admission?: Yes Plan: No further syncopal episodes. (5) Chronic anticoagulation Is this a current diagnosis for this admission?: Yes Plan: Based on weight and serum creatinine the patient's apixaban will return to 5 mg twice daily. - Time Time Spent with patient: Less than 15 minutes Medications reviewed and adjusted accordingly: Yes Anticipated discharge: Home Within: within 24 hours
[2019-09-28] MEDS: POTASSIUM CHLORIDE 10 MEQ TABLET.ER PO SCH (12:08)
[2019-09-28] MEDS: APIXABAN 5 MG TABLET PO SCH (18:02)
[2019-09-28] MEDS: DOCUSATE SODIUM 100 MG CAPSULE PO SCH (20:32)
[2019-09-29 05:41] LABS: ANION GAP 6 (5-19); BLOOD UREA NITROGEN 28 mg/dL (7-20); CALCIUM 8.5 mg/dL (8.4-10.2); CARBON DIOXIDE 28 mmol/L (22-30); CHLORIDE 104 mmol/L (98-107); GLUCOSE 109 mg/dL (75-110); POTASSIUM 3.3 mmol/L (3.6-5.0)
[2019-09-29] MEDS: PANTOPRAZOLE SODIUM 20 MG TABLET.DR PO SCH (05:47)
--- NOTE | 2019-09-29 07:54 | PDOC PROGRESS REPORT ---
Subjective Progress Note for:: 09/29/19 Subjective:: BRANDON RAYMUNDO is a 83 year old female with history of hypertension, syncope and dizziness, found to have sick sinus syndrome and atrial tachycardia status post pacemaker on July 20, 2015 who returns is consulted to our service for further recommendations regarding atrial fibrillation with rapid ventricular response after she presented to our facility with positional lightheadedness, generalized fatigue, shortness of breath at rest, lower extremity edema and palpitations. She had been followed by Dr. Singh who started the patient on anticoagulation several months ago after her atrial fibrillation became more persistent and frequent. Of note, her stress test in December 2016 was a submaximal test as her heart rate was blunted by her beta teo but there was no evidence of ischemia or anginal equivalents at the achieved workload of 4.1 mets. The patient is resting comfortably in her bed this morning and without any cardiac complaints. Her troponins are negative x3 and her BNP is slightly elevated with evidence of left pleural effusion, cardiomegaly and the possibility of infection on chest x-ray on 09/27/2019. Her telemetry shows atrial fibrillation with occasional episodes of rapid ventricular response and intermittently ventricularly paced. 09/29/2019: The patient states that she had a "rough night". Unfortunately she has not been able to walk frequently because she is generalized weak. Although she feels slightly better her atrial fibrillation continue to be uncontrolled as demonstrated this morning when her heart rate went up to 125 bpm just by sitting up speaking to me. Physical exam on 09/29/2019: GENERAL: Pleasant and conversational. Oriented x3 with normal mood. Not in acute distress. Well groomed and well developed. HEENT: Normocephalic, atraumatic. Pupils equal. Sclerae anicteric. Oropharynx moist. NECK: No JVD. No carotid bruits. LUNGS: Clear to auscultation bilaterally. Normal respiratory effort without the use of accessory muscles or intercostal retractions. CARDIOVASCULAR: Irregularly irregular rate and rhythm, normal S1 and S2 without murmurs, rubs, or gallops. PMI not displaced. EXTREMITIES: No edema, no cyanosis, no clubbing. +2 pulses femoral and pedal pulses bilaterally. SKIN: No lesions or rashes. MUSCULOSKELETAL: No chest tenderness to palpation. NEUROLOGIC: Nonfocal. No gross sensory or motor deficits bilateral upper or lower extremities. Outpatient medications: 1. ALPRAZolam 0.5 MG Oral Tablet; Take 1/2 tablet by mouth as needed 2. B-12 1000 MCG Sublingual Tablet Sublingual 3. Claritin 10 MG Oral Capsule; once daily 4. Co Q 10 CAPS; TAKE 1 CAPSULE DAILY 5. Eliquis 5 MG Oral Tablet; take 1 tab twice daily 6. Glucosamine Chondroitin Adv TABS; TAKE 1 TABLET DAILY DIRECTED 7. hydroCHLOROthiazide 25 MG Oral Tablet; TAKE 0.5 TABLET DAILY 8. Metoprolol Succinate ER 25 MG Oral Tablet Extended Release 24 Hour; TAKE ONE TABLET BY MOUTH EVERY DAY 9. [place]-3 Fish Oil CAPS; TAKE 1 CAPSULE DAILY 10. Prevacid 30 MG Oral Capsule Delayed Release; TAKE 1 CAPSULE Daily In The Morning 30 MIN BEFORE MEALS 11. Sertraline HCl - 50 MG Oral Tablet; TAKE 1 TABLET DAILY 12. Vitamin D 1000 UNIT TABS Reason For Visit: CHRONIC PERSISTENT ATRIAL FIBRILLATION, PLEURAL Physical Exam Vital Signs: Temp Pulse Resp BP Pulse Ox 98.0 F 101 H 17 118/53 L 92 09/28/19 23:42 09/29/19 02:00 09/28/19 23:42 09/28/19 23:42 09/28/19 23:42 Intake & Output 09/27/19 09/28/19 09/29/19 06:59 06:59 06:59 Intake Total 240 440 Balance 240 440 Weight 68.6 kg 68.3 kg Results Laboratory Results: 09/28/19 03:44 09/29/19 04:14 09/29/19 04:14 Sodium 138.0 Potassium 3.3 L Chloride 104 Carbon Dioxide 28 Anion Gap 6 BUN 28 H Creatinine 0.69 Est GFR ( Amer) > 60 Glucose 109 Calcium 8.5 Magnesium 1.9 09/27/19 09/27/19 09/27/19 14:10 14:10 14:10 Creatine Kinase 24 L CK-MB (CK-2) 0.73 Troponin I < 0.012 NT-Pro-B Natriuret Pep 2670 H 09/27/19 09/28/19 21:36 03:44 Creatine Kinase CK-MB (CK-2) Troponin I < 0.012 < 0.012 NT-Pro-B Natriuret Pep Impressions: Chest X-Ray 09/27/19 17:03 IMPRESSION: Cardiomegaly. Given unilaterality of pulmonary findings, favor infectious etiology. 09/28/19 03:44 09/29/19 04:14 MCV 83 fl (80-97) 09/28/19 03:44 MCH 28.1 pg (27.0-33.4) 09/28/19 03:44 MCHC 33.8 g/dL (32.0-36.0) 09/28/19 03:44 RDW 15.2 % (11.5-14.0) H 09/28/19 03:44 Seg Neutrophils % Not Reportable 09/28/19 03:44 Chloride 104 mmol/L (98-107) 09/29/19 04:14 Carbon Dioxide 28 mmol/L (22-30) 09/29/19 04:14 Anion Gap 6 (5-19) 09/29/19 04:14 Est GFR ( Amer) > 60 (>60) 09/29/19 04:14 Glucose 109 mg/dL (75-110) 09/29/19 04:14 Calcium 8.5 mg/dL (8.4-10.2) 09/29/19 04:14 Magnesium 1.9 mg/dL (1.6-2.3) 09/29/19 04:14 Total Bilirubin 0.9 mg/dL (0.2-1.3) 09/27/19 14:10 AST 34 U/L (14-36) 09/27/19 14:10 Alkaline Phosphatase 70 U/L (38-126) 09/27/19 14:10 Total Protein 6.2 g/dL (6.3-8.2) L 09/27/19 14:10 Albumin 3.3 g/dL (3.5-5.0) L 09/27/19 14:10 Urine Color YELLOW 09/27/19 15:47 Urine Appearance CLEAR 09/27/19 15:47 Urine pH 5.0 (5.0-9.0) 09/27/19 15:47 Ur Specific [place] 1.029 09/27/19 15:47 Urine Protein 100 mg/dL (NEGATIVE) H 09/27/19 15:47 Urine Glucose (UA) NEGATIVE mg/dL (NEGATIVE) 09/27/19 15:47 Urine Ketones TRACE mg/dL (NEGATIVE) H 09/27/19 15:47 Urine Blood NEGATIVE (NEGATIVE) 09/27/19 15:47 Urine Nitrite NEGATIVE (NEGATIVE) 09/27/19 15:47 Ur Leukocyte Esterase NEGATIVE (NEGATIVE) 09/27/19 15:47 Urine WBC (Auto) 5 /HPF 09/27/19 15:47 Urine RBC (Auto) 5 /HPF 09/27/19 15:47 09/27/19 09/27/19 09/27/19 14:10 14:10 14:10 Creatine Kinase 24 L CK-MB (CK-2) 0.73 Troponin I < 0.012 NT-Pro-B Natriuret Pep 2670 H 09/27/19 09/28/19 21:36 03:44 Creatine Kinase CK-MB (CK-2) Troponin I < 0.012 < 0.012 NT-Pro-B Natriuret Pep Current Medication List Generic Name Dose Route Start Last Admin Trade Name Freq PRN Reason Stop Dose Admin Acetaminophen 650 mg 09/27/19 18:40 09/28/19 19:45 Tylenol 325 Mg Tablet PO 10/27/19 18:39 650 mg Q4HP PRN Administration FOR PAIN OR TEMP Al Hydrox/Mg Hydrox/Simethicone 30 ml 09/27/19 18:40 Maalox Plus Susp 30 Udcup PO 10/27/19 18:39 Q6HP PRN HEARTBURN Apixaban 5 mg 09/28/19 18:00 09/28/19 18:02 Eliquis 5 Mg Tablet PO 10/28/19 17:59 5 mg BID MICHAEL Administration Docusate Sodium 100 mg 09/28/19 20:30 09/28/19 20:32 Colace 100 Mg Capsule PO 10/28/19 20:29 100 mg DAILY MICHAEL Administration Furosemide 10 mg 09/27/19 22:00 09/28/19 21:43 Lasix Inj/Pf 20 Mg/2 Ml Sdv IV 10/27/19 21:59 10 mg Q12 MICHAEL Administration Magnesium Hydroxide 30 ml 09/27/19 18:40 Milk Of Magnesia 30 Ml Udcup PO 10/27/19 18:39 HSP PRN FOR CONSTIPATION Metoprolol Succinate 25 mg 09/28/19 12:00 09/28/19 12:08 Toprol Xl 25 Mg Tab.Sr PO 10/28/19 11:59 25 mg DAILY MICHAEL Administration Metoprolol Tartrate 5 mg 09/27/19 18:56 Lopressor Inj/Pf 5 Mg/5 Ml Sdv IV 10/27/19 18:55 Q6HP PRN Give For Hr > 120 Pantoprazole Sodium 20 mg 09/28/19 06:00 09/29/19 05:[address] Tablet PO 10/28/19 05:59 20 mg Q6AM MICHAEL Administration Potassium Chloride 20 meq 09/28/19 12:00 09/28/19 12:08 Klor-Con 10 Meq Tablet Er PO 10/28/19 11:59 20 meq DAILY MICHAEL Administration Sodium Chloride 2.5 ml 09/28/19 06:00 09/29/19 05:53 Saline Flush 2.5 Ml Monoject Prefil Syrin IV 10/28/19 05:59 Not Given Q8 MICHAEL Discontinued Medications Generic Name Dose Route Start Last Admin Trade Name Freq PRN Reason Stop Dose Admin Apixaban 5 mg 09/28/19 10:00 Eliquis 5 Mg Tablet PO 10/28/19 09:59 BID MICHAEL Apixaban 2.5 mg 09/28/19 10:00 09/28/19 09:47 Eliquis 2.5 Mg Tablet PO 10/28/19 09:59 2.5 mg BID MICHAEL Administration Furosemide 10 mg 09/27/19 17:07 09/27/19 18:49 Lasix Inj/Pf 20 Mg/2 Ml Sdv IV 09/27/19 17:08 10 mg NOW ONE Administration Metoprolol Tartrate 25 mg 09/27/19 17:07 09/27/19 18:48 Lopressor 25 Mg Tablet PO 09/27/19 17:08 25 mg NOW ONE Administration Assessment & Plan - Diagnosis (1) Longstanding persistent atrial fibrillation Is this a current diagnosis for this admission?: Yes Plan: The patient feels improved since admission however she continues to have rapid ventricular response as described above. Recommendations: -Discontinue metoprolol succinate. -Start metoprolol tartrate 50 mg twice daily. -Continue with current doses of Eliquis. -We will continue to follow-up with you. (2) Heart failure Is this a current diagnosis for this admission?: Yes Plan: The patient had an elevated proBNP as well as a pleural effusion and symptoms consistent with heart failure. She feels much better today. Unfortunately her intake and output is not accurate. She ruled out for acute ME with 3 sets of negative troponins. Recommendations: -Transition Lasix IV to 20 mg p.o. daily. -Start DELONTE inhibitor or ARB of your choice. -Echocardiogram to assess for structural heart disease. -Restrict fluid intake to 1500 cc daily. -Low sodium diet, less than 1500 mg daily. -Strict intake and output. -Daily weights.
[2019-09-29] MEDS: METOPROLOL TARTRATE 50 MG TABLET PO SCH ×2 (09:32→21:25)
[2019-09-29] MEDS: APIXABAN 5 MG TABLET PO SCH ×2 (09:32→17:11)
[2019-09-29] MEDS: POTASSIUM CHLORIDE 10 MEQ TABLET.ER PO SCH (09:32)
[2019-09-29] MEDS: DOCUSATE SODIUM 100 MG CAPSULE PO SCH (09:32)
[2019-09-29] MEDS: FUROSEMIDE INJ/PF 20 MG/2 ML SDV IV SCH (09:32)
--- NOTE | 2019-09-29 13:28 | PDOC PROGRESS REPORT ---
Subjective Progress Note for:: 09/29/19 Subjective:: The patient reports that she feels the multiple medications, more than she has taken before, are upsetting her stomach. She continues to complain about a distended abdomen. She has not had a bowel movement in 4 days. She also reports that she normally takes sertraline and loratadine at home. Reason For Visit: CHRONIC PERSISTENT ATRIAL FIBRILLATION, PLEURAL Physical Exam Vital Signs: Temp Pulse Resp BP Pulse Ox 97.7 F 106 H 20 117/75 96 09/29/19 08:44 09/29/19 08:44 09/29/19 08:44 09/29/19 08:44 09/29/19 08:44 Intake & Output 09/28/19 09/29/19 09/30/19 06:59 06:59 06:59 Intake Total 240 440 Balance 240 440 Weight 68.6 kg 68.3 kg General appearance: PRESENT: no acute distress, cooperative, well-developed Head exam: PRESENT: atraumatic, normocephalic Ear exam: PRESENT: normal external ear exam. ABSENT: bleeding, drainage Respiratory exam: PRESENT: decreased breath sounds - On the left, symmetrical, unlabored, other - Right lung is relatively clear. ABSENT: rales, rhonchi, tachypnea, wheezes Cardiovascular exam: PRESENT: irregular rhythm GI/Abdominal exam: PRESENT: distended, normal bowel sounds, soft. ABSENT: firm, guarding, tenderness Rectal exam: PRESENT: deferred Gentrourinary exam: ABSENT: indwelling catheter Extremities exam: PRESENT: pedal edema Musculoskeletal exam: PRESENT: ambulatory. ABSENT: deformity Neurological exam: PRESENT: alert, awake, oriented to person, oriented to place, oriented to time, oriented to situation, CN II-XII grossly intact. ABSENT: altered Psychiatric exam: PRESENT: appropriate affect, normal mood. ABSENT: agitated, anxious Focused psych exam: ABSENT: delusional, paranoid, restlessness Skin exam: PRESENT: dry, normal color, warm. ABSENT: rash Results Laboratory Results: 09/28/19 03:44 09/29/19 04:14 09/29/19 04:14 Sodium 138.0 Potassium 3.3 L Chloride 104 Carbon Dioxide 28 Anion Gap 6 BUN 28 H Creatinine 0.69 Est GFR ( Amer) > 60 Glucose 109 Calcium 8.5 Magnesium 1.9 07/01/0609/27/19 09/27/19 14:10 14:10 14:10 Creatine Kinase 24 L CK-MB (CK-2) 0.73 Troponin I < 0.012 NT-Pro-B Natriuret Pep 2670 H 09/27/19 09/28/19 21:36 03:44 Creatine Kinase CK-MB (CK-2) Troponin I < 0.012 < 0.012 NT-Pro-B Natriuret Pep Impressions: Chest X-Ray 09/27/19 17:03 IMPRESSION: Cardiomegaly. Given unilaterality of pulmonary findings, favor infectious etiology. Assessment and Plan - Diagnosis (1) Rapid atrial fibrillation Is this a current diagnosis for this admission?: Yes Plan: Still without adequate rate control. Will change the metoprolol to succinate to metoprolol tartrate 50 mg twice daily and continue to monitor on telemetry (2) Pleural effusion, left Is this a current diagnosis for this admission?: Yes Plan: This is stable. As the patient is displaying oxygen saturation greater than 90% on room air there is no emergent need to perform a thoracentesis. Consider ongoing diuresis and reevaluation. At some point she may require thoracentesis but I do not feel that is needed in this acute setting. (3) Longstanding persistent atrial fibrillation Is this a current diagnosis for this admission?: Yes Plan: Medication changes as above (4) Syncope Qualifiers: Syncope type: unspecified Qualified Code(s): R55 - Syncope and collapse Is this a current diagnosis for this admission?: Yes Plan: Likely multifactorial. No evidence of lightheadedness or dizziness when walking to the bathroom. (5) Chronic anticoagulation Is this a current diagnosis for this admission?: Yes Plan: Continue Eliquis at 5 mg twice daily. (6) Depression Qualifiers: Depression Type: unspecified Qualified Code(s): F32.9 - Major depressive disorder, single episode, unspecified Is this a current diagnosis for this admission?: Yes Plan: For some reason her Zoloft was not on the medication reconciliation. The patient tells me that she takes 12.5 mg of sertraline every evening. I have placed this order. (7) Rhinitis Qualifiers: Rhinitis type: allergic Allergic rhinitis trigger: unspecified Allergic rhinitis seasonality: unspecified Qualified Code(s): J30.9 - Allergic rhinitis, unspecified Is this a current diagnosis for this admission?: Yes Plan: I believe the patient takes loratadine for seasonal allergies of some sort causing rhinitis. I will resume the loratadine 10 mg daily. (8) Constipation Qualifiers: Constipation type: unspecified constipation type Qualified Code(s): K59.00 - Constipation, unspecified Is this a current diagnosis for this admission?: Yes Plan: I believe the slightly distended abdomen is related to constipation. I do not feel it is ascites. The patient has not had a bowel movement in 4 days. I have ordered several different laxatives and stool softeners. - Time Time Spent with patient: 15-24 minutes Medications reviewed and adjusted accordingly: Yes Anticipated discharge: Home Within: within 48 hours
[2019-09-29] MEDS ORDERED: BISACODYL 5 MG TABEC PO ONE (13:32)
[2019-09-29] MEDS ORDERED: POLYETHYLENE GLYCOL 3350 POWDER 17 GM/1 PACKET PO PRN (13:32)
[2019-09-29] MEDS: LORATADINE 10 MG TABLET PO SCH (14:34)
[2019-09-29] MEDS: SERTRALINE HCL 50 MG TABLET PO SCH (21:25)
[2019-09-29] MEDS: MAG HYDROX/AL HYDROX/SIMETH SUSP 30 ML UDCUP PO PRN (22:51)
[2019-09-30] MEDS: PANTOPRAZOLE SODIUM 20 MG TABLET.DR PO SCH (05:11)
[2019-09-30] MEDS: MAG HYDROX/AL HYDROX/SIMETH SUSP 30 ML UDCUP PO PRN ×2 (08:06→21:15)
[2019-09-30] MEDS: LORATADINE 10 MG TABLET PO SCH (10:22)
[2019-09-30] MEDS: POTASSIUM CHLORIDE 10 MEQ TABLET.ER PO SCH (10:22)
[2019-09-30] MEDS: LISINOPRIL 5 MG TABLET PO SCH (10:23)
[2019-09-30] MEDS: FUROSEMIDE 20 MG TABLET PO SCH (10:23)
[2019-09-30] MEDS: APIXABAN 5 MG TABLET PO SCH (10:23)
[2019-09-30] MEDS: METOPROLOL TARTRATE 50 MG TABLET PO SCH ×2 (10:23→21:14)
[2019-09-30] MEDS: DOCUSATE SODIUM 100 MG CAPSULE PO SCH (10:24)
--- NOTE | 2019-09-30 12:58 | PDOC PROGRESS REPORT ---
Subjective Progress Note for:: 09/30/19 Subjective:: The patient is resting comfortably. She remains on room air. She states that she felt poorly this morning but after a bowel movement she felt better. Echocardiogram done earlier today reveals a pericardial effusion in addition to the pleural effusion noted on admission. Reason For Visit: CHRONIC PERSISTENT ATRIAL FIBRILLATION, PLEURAL Physical Exam Vital Signs: Temp Pulse Resp BP Pulse Ox 98.0 F 47 L 18 114/60 95 09/30/19 12:00 09/30/19 12:00 09/30/19 12:00 09/30/19 12:00 09/30/19 12:00 Intake & Output 09/29/19 09/30/19 10/01/19 06:59 06:59 06:59 Intake Total 440 240 Balance 440 240 Weight 68.3 kg 68.3 kg General appearance: PRESENT: no acute distress, well-developed Head exam: PRESENT: atraumatic, normocephalic Ear exam: PRESENT: normal external ear exam. ABSENT: bleeding, drainage Mouth exam: PRESENT: moist, tongue midline Respiratory exam: PRESENT: decreased breath sounds - On the left., symmetrical, unlabored. ABSENT: rales, rhonchi, tachypnea, wheezes Cardiovascular exam: PRESENT: irregular rhythm GI/Abdominal exam: PRESENT: normal bowel sounds, soft. ABSENT: tenderness Rectal exam: PRESENT: deferred Gentrourinary exam: ABSENT: indwelling catheter Extremities exam: ABSENT: pedal edema Musculoskeletal exam: PRESENT: ambulatory. ABSENT: deformity, dislocation Neurological exam: PRESENT: alert, awake, oriented to person, oriented to place, oriented to time, oriented to situation, CN II-XII grossly intact. ABSENT: altered Psychiatric exam: PRESENT: flat affect. ABSENT: agitated, anxious Focused psych exam: ABSENT: delusional, paranoid, restlessness Skin exam: PRESENT: dry, warm. ABSENT: rash Results Laboratory Results: 09/28/19 03:44 09/29/19 04:14 09/27/19 09/27/19 09/27/19 14:10 14:10 14:10 Creatine Kinase 24 L CK-MB (CK-2) 0.73 Troponin I < 0.012 NT-Pro-B Natriuret Pep 2670 H 09/27/19 09/28/19 21:36 03:44 Creatine Kinase CK-MB (CK-2) Troponin I < 0.012 < 0.012 NT-Pro-B Natriuret Pep Impressions: Chest X-Ray 09/27/19 17:03 IMPRESSION: Cardiomegaly. Given unilaterality of pulmonary findings, favor infectious etiology. Assessment and Plan - Diagnosis (1) Pericardial effusion Is this a current diagnosis for this admission?: Yes Plan: An echocardiogram this morning revealed a pericardial effusion. The patient does have a sizable left pleural effusion. It is unclear if they are related. At this time the patient for the evaluated in the morning. If interventional cardiology feels it is appropriate to perform a pericardiocentesis that it will be done tomorrow. I am holding the Eliquis for tonight and tomorrow morning in anticipation of the possibility of a procedure. If not the anticoagulation will be restarted. The patient will then follow-up with cardiology as an outpatient with reassessment to follow. (2) Rapid atrial fibrillation Is this a current diagnosis for this admission?: Yes Plan: Now on 50 of metoprolol tartrate twice daily. Rate still it is mostly between 90 and 110. Of note she does have an episode of bradycardia but this is sporadic and not consistent. (3) Pleural effusion, left Is this a current diagnosis for this admission?: Yes Plan: Patient is stable on room air. Clinically no reason to perform a thoracentesis. Monitor as an outpatient. (4) Longstanding persistent atrial fibrillation Is this a current diagnosis for this admission?: Yes Plan: Continue to adjust medications. Patient will likely discharge on her current metoprolol dosing. She will follow-up with Dr. Hay as an outpatient. Further adjustments can be made at that time. (5) Syncope Qualifiers: Syncope type: unspecified Qualified Code(s): R55 - Syncope and collapse Is this a current diagnosis for this admission?: Yes Plan: No syncopal or near syncopal episodes since she was hospitalized. (6) Chronic anticoagulation Is this a current diagnosis for this admission?: Yes Plan: The patient is on apixaban 5 mg twice daily for atrial fibrillation. I will hold tonight's and tomorrow morning's dose in case interventional cardiology feels appropriate for pericardiocentesis. This will be resumed if there is no procedure. (7) Depression Qualifiers: Depression Type: unspecified Qualified Code(s): F32.9 - Major depressive disorder, single episode, unspecified Is this a current diagnosis for this admission?: Yes Plan: Sertraline restarted at the patient's dose. This is 12.5 mg at bedtime (8) Rhinitis Qualifiers: Rhinitis type: allergic Allergic rhinitis trigger: unspecified Allergic rhinitis seasonality: unspecified Qualified Code(s): J30.9 - Allergic rhinitis, unspecified Is this a current diagnosis for this admission?: Yes Plan: Continue antihistamine (9) Constipation Qualifiers: Constipation type: unspecified constipation type Qualified Code(s): K59.00 - Constipation, unspecified Is this a current diagnosis for this admission?: Yes Plan: Since additional medication the patient did have a bowel movement this morning. We will try and encourage regularity. - Time Time Spent with patient: 15-24 minutes Medications reviewed and adjusted accordingly: Yes Anticipated discharge: Home Within: within 48 hours
--- NOTE | 2019-09-30 14:56 | XCELERA REPORT ---
[address] [address] Transthoracic Echocardiogram Report Name: BRANDON RAYMUNDO Age: 83 yrs Gender: Female : 1935 Patient Status: Inpatient Patient Location: [address] [place], [place] [address] Study Date: 09/30/2019 08:26 AM History: Atrial fibrillation Dizziness Height: 60 in Weight: 150 lb BSA: 1.7 m2 Procedure: A complete two-dimensional transthoracic echocardiogram was performed (2D, M-mode, spectral and color flow Doppler). The study was technically difficult with many images being suboptimal in quality. Reason For Study: CHF Ordering Physician: DAVID MCCARTY Performed By: Edelmira Harris Interpretation Summary Left ventricular systolic function is low normal. The Ejection Fraction estimate is 50-55% The right ventricular systolic function is mild to moderately reduced. There is a mild amount of mitral regurgitation There is no aortic valve stenosis There is a trace amount of aortic regurgitation There is a trace amount of tricuspid regurgitation There is mild pulmonary hypertension by echo Large pericardial effusion. There are no echocardiographic or Doppler indications for cardiac tamponade MMode/2D Measurements & Calculations RVDd: 2.7 cm LVIDd: 4.1 cm FS: 27.6 % Ao root diam: 2.7 cm IVSd: 1.1 cm LVIDs: 2.9 cm EDV(Teich): 73.0 ml Ao root area: 5.5 cm2 LVPWd: 1.1 cm ESV(Teich): 33.5 ml EF(Teich): 54.1 % Doppler Measurements & Calculations MV E max janine: MV P1/2t max janine: LV V1 max PG: MR max janine: 128.3 cm/sec 128.8 cm/sec 3.2 mmHg 632.9 cm/sec LV V1 max: MR max P.9 cm/sec 160.2 mmHg PA V2 max: PI end-d janine: TR max janine: AV Vmax-pr_phl: 52.5 cm/sec 101.1 cm/sec 296.9 cm/sec 101.8 cm/sec PA max P.1 mmHg TR max P.2 mmHg MV P1/2t-pr_phl: 53.3 msec Left Ventricle The left ventricle is normal in size. There is mild concentric left ventricular hypertrophy. Left ventricular systolic function is low normal. The Ejection Fraction estimate is 50-55%. LV diastolic function not assessed. Regional wall motion abnormalities cannot be excluded due to limited visualization. Right Ventricle There is a pacemaker lead in the right ventricle. The right ventricle is normal size. The right ventricular systolic function is mild to moderately reduced. Atria The right atrium is mildly dilated. There is a catheter/pacemaker lead seen in the right atrium. Mitral Valve The mitral valve is grossly normal. There is a mild amount of mitral regurgitation. Aortic Valve The aortic valve is sclerotic, but shows no functional abnormality. The aortic valve opens well. The aortic valve is mildly calcified. There is no aortic valve stenosis. There is a trace amount of aortic regurgitation. Tricuspid Valve The tricuspid valve is normal in structure and function. There is a trace amount of tricuspid regurgitation. Right ventricular systolic pressure is estimated to be elevated at 50-60mmHg. There is mild pulmonary hypertension by echo. Pulmonic Valve The pulmonic valve is not well visualized. There is a trace amount of pulmonic regurgitation. Great Vessels The aortic root is normal size. Effusions Large pericardial effusion. There are no echocardiographic or Doppler indications for cardiac tamponade. Moderate size left pleural effusion. : DAVID MCCARTY Anil
--- NOTE | 2019-09-30 15:16 | PDOC PROGRESS REPORT ---
Subjective Progress Note for:: 09/30/19 Subjective:: No complaints. Feels better. Reason For Visit: CHRONIC PERSISTENT ATRIAL FIBRILLATION, PLEURAL Physical Exam Vital Signs: Temp Pulse Resp BP Pulse Ox 98.0 F 90 18 114/60 95 09/30/19 12:00 09/30/19 14:00 09/30/19 12:00 09/30/19 12:00 09/30/19 12:00 Intake & Output 09/29/19 09/30/19 10/01/19 06:59 06:59 06:59 Intake Total 440 240 Balance 440 240 Weight 68.3 kg 68.3 kg General appearance: PRESENT: no acute distress, cooperative, obese, well- developed, well-nourished Head exam: PRESENT: atraumatic, normocephalic Eye exam: PRESENT: conjunctiva pink, EOMI Mouth exam: PRESENT: moist Neck exam: PRESENT: full ROM Respiratory exam: PRESENT: prolonged expiratory phas, symmetrical, unlabored Cardiovascular exam: PRESENT: irregular rhythm, +S1, +S2, other - There is no Kussmaul sign. Pulses: PRESENT: normal radial pulses Vascular exam: PRESENT: other - Pulses paradoxus of 8 mmHg. GI/Abdominal exam: PRESENT: soft Rectal exam: PRESENT: deferred Musculoskeletal exam: PRESENT: normal inspection Neurological exam: PRESENT: alert, awake, oriented to person, oriented to place, oriented to time, oriented to situation Psychiatric exam: PRESENT: appropriate affect Skin exam: PRESENT: dry, intact, normal color Results Laboratory Results: 09/28/19 03:44 09/29/19 04:14 09/27/19 09/27/19 09/27/19 14:10 14:10 14:10 Creatine Kinase 24 L CK-MB (CK-2) 0.73 Troponin I < 0.012 NT-Pro-B Natriuret Pep 2670 H 09/27/19 09/28/19 21:36 03:44 Creatine Kinase CK-MB (CK-2) Troponin I < 0.012 < 0.012 NT-Pro-B Natriuret Pep EKG Comments: Echocardiogram images show the presence of a large size pericardial effusion with no convincing evidence of tamponade. The IVC is mildly dilated Impressions: Chest X-Ray 09/27/19 17:03 IMPRESSION: Cardiomegaly. Given unilaterality of pulmonary findings, favor infectious etiology. Assessment & Plan - Diagnosis (1) Pericardial effusion Is this a current diagnosis for this admission?: Yes Plan: Clinically and by echocardiogram there is no evidence of cardiac tamponade However the size of the effusion is large. In my discussion with Dr. Hay prior echocardiograms have not demonstrated an effusion suggesting that this is a new finding. It is questionable whether this is in fact responsible for the symptoms that the patient has been describing or whether they are related to measures aimed at rate control for atrial fibrillation In either event I am being informed that Dr. Hay is arranged for Dr. Trevino to review the echocardiogram images to see if pericardiocentesis needs to be pursued while she is in the hospital or whether this can be followed as an outpatient based on serial echocardiograms. With this in mind I will put her systemic anticoagulation on hold. We will wait to hear from Dr. Hay or his partner (2) Longstanding persistent atrial fibrillation Is this a current diagnosis for this admission?: Yes Plan: Rate control strategy. Systemic anticoagulation. This is being held (3) Chronic anticoagulation Is this a current diagnosis for this admission?: Yes Plan: For longstanding persistent atrial fibrillation - Notes Notes: No clinical evidence to suggest cardiac tamponade. No echocardiographic evidence to suggest tamponade. However the pericardial effusion is large in size. Will wait for input from Dr. Hay's partner. Will observe overnight
--- NOTE | 2019-09-30 19:46 | CDI QUERY ---
CDI Query CDI Review: We are seeking further clarification of documentation to reflect the severity of illness of your patient. Noted in the Cardiology Consult Notes: The patient had an elevated proBNP as well as a pleural effusion and symptoms consistent with heart failure. Pericardial effusion Is this a current diagnosis for this admission?: Yes Clinically and by echocardiogram there is no evidence of cardiac tamponade However the size of the effusion is large. In my discussion with Dr. Hay prior echocardiograms have not demonstrated an effusion suggesting that this is a new finding. It is questionable whether this is in fact responsible for the symptoms that the patient has been describing or whether they are related to measures aimed at rate control for atrial fibrillation Echocardiogram images show the presence of a large size pericardial effusion with no convincing evidence of tamponade. The IVC is mildly dilated BNP 2670 Based on your medical judgement, can you clarify in the Progress Notes if CHF is present and specify type and acuity: Acute systolic or diastolic or combined CHF Acute on chronic systolic or diastolic or combined CHF Chronic systolic or diastolic or combined CHF Please clarify if the Pericardial effusion is acute Thank you for your consideration. PAULA Oropeza RN Clinical Bar Examiner Physician Advisor
[2019-09-30] MEDS: SERTRALINE HCL 50 MG TABLET PO SCH (21:14)
[2019-10-01] MEDS: PANTOPRAZOLE SODIUM 20 MG TABLET.DR PO SCH (05:42)
[2019-10-01 06:58] LABS: ANION GAP 5 (5-19); BLOOD UREA NITROGEN 29 mg/dL (7-20); CALCIUM 8.5 mg/dL (8.4-10.2); CARBON DIOXIDE 31 mmol/L (22-30); CHLORIDE 102 mmol/L (98-107); GLUCOSE 110 mg/dL (75-110)
[2019-10-01] MEDS: DOCUSATE SODIUM 100 MG CAPSULE PO SCH (09:34)
[2019-10-01] MEDS: LORATADINE 10 MG TABLET PO SCH (09:34)
[2019-10-01] MEDS: LISINOPRIL 5 MG TABLET PO SCH (09:35)
[2019-10-01] MEDS: POTASSIUM CHLORIDE 10 MEQ TABLET.ER PO SCH (09:37)
[2019-10-01] MEDS: FUROSEMIDE 20 MG TABLET PO SCH (09:38)
[2019-10-01] MEDS: METOPROLOL TARTRATE 50 MG TABLET PO SCH (09:38)
[2019-10-01] MEDS: MAG HYDROX/AL HYDROX/SIMETH SUSP 30 ML UDCUP PO PRN (09:39)
[2019-10-01 11:06] LABS: INTERNATIONAL RATION (INR) 1.27
[2019-10-01 11:30] VITALS: BP 136/68
--- NOTE | 2019-10-01 13:25 | PDOC DISCHARGE SUMMARY ---
Impression - Admit/DC Date/PCP Admission Date/Primary Care Provider: 09/27/19 17:33 CAMRON HASTINGS MD Discharge Date: 10/01/19 - Assessment Summary: (1) Pericardial effusion Is this a current diagnosis for this admission?: Yes Plan: An echocardiogram this morning revealed a pericardial effusion. The patient does have a sizable left pleural effusion. It is unclear if they are related. At this time the patient for the evaluated in the morning. If interventional cardiology feels it is appropriate to perform a pericardiocentesis that it will be done tomorrow. I am holding the Eliquis for tonight and tomorrow morning in anticipation of the possibility of a procedure. If not the anticoagulation will be restarted. The patient will then follow-up with cardiology as an outpatient with reassessment to follow. 10/01/2019-pericardial effusion that was seen in the echocardiogram is reviewed by Dr. Trevino this morning, in his opinion there is no need for pericardiocen tesis. Dr. Hay called me with the same information and he requested to discharge the patient with a follow-up visit with him next week. Patient going home with cardiac rehab. As per the cardiology plan is to restart Eliquis at this time. Based on the desolderer opinion patient developed acute pericardial effusion without any signs of cardiac tamponade and vital signs are stable. (2) Rapid atrial fibrillation Is this a current diagnosis for this admission?: Yes Plan: Now on 50 of metoprolol tartrate twice daily. Rate still it is mostly between 90 and 110. Of note she does have an episode of bradycardia but this is sporadic and not consistent. 10/01/2019-on examination today heart rate is around 115. Presently on metoprolol 50 mg twice a day. Bristle Machine Operator is aware of the heart rate and advised to continue Eliquis upon discharge. Patient is on metoprolol 25 mg p.o. daily and the dose was increased to 50 mg p.o. twice daily during the hospital stay. (3) Pleural effusion, left Is this a current diagnosis for this admission?: Yes Plan: Patient is stable on room air. Clinically no reason to perform a thoracentesis. Monitor as an outpatient. 10/01/2019-pulse ox today's 97% room air. Chest x-ray suggestive of left pleural effusion stable. (4) Longstanding persistent atrial fibrillation Is this a current diagnosis for this admission?: Yes Plan: Continue to adjust medications. Patient will likely discharge on her current metoprolol dosing. She will follow-up with Dr. Hay as an outpatient. Further adjustments can be made at that time. 10/01/2019-patient is going home today on Eliquis and metoprolol 50 mg p.o. twice daily. Patient is advised to follow-up with Dr. Hay next week. (5) Syncope Qualifiers: Syncope type: unspecified Qualified Code(s): R55 - Syncope and collapse Is this a current diagnosis for this admission?: Yes Plan: No syncopal or near syncopal episodes since she was hospitalized. (6) Chronic anticoagulation Is this a current diagnosis for this admission?: Yes Plan: The patient is on apixaban 5 mg twice daily for atrial fibrillation. I will hold tonight's and tomorrow morning's dose in case interventional cardiology feels appropriate for pericardiocentesis. This will be resumed if there is no procedure. 10/01/2019-Eliquis is restarted today after plan for Pericardiocentesis canceled. And is advised to continue to use Eliquis at home. (7) Depression Qualifiers: Depression Type: unspecified Qualified Code(s): F32.9 - Major depressive disorder, single episode, unspecified Is this a current diagnosis for this admission?: Yes Plan: Sertraline restarted at the patient's dose. This is 12.5 mg at bedtime (8) Rhinitis Qualifiers: Rhinitis type: allergic Allergic rhinitis trigger: unspecified Allergic rhinitis seasonality: unspecified Qualified Code(s): J30.9 - Allergic rhinitis, unspecified Is this a current diagnosis for this admission?: Yes Plan: Continue antihistamine (9) Constipation Qualifiers: Constipation type: unspecified constipation type Qualified Code(s): K59.00 - Constipation, unspecified Is this a current diagnosis for this admission?: Yes Plan: Since additional medication the patient did have a bowel movement this morning. We will try and encourage regularity. - Time Time Spent with patient: 15-24 minutes Medications reviewed and adjusted accordingly: Yes Anticipated discharge: Home Within: within 48 hours - Additional Information Resuscitation Status: Do Not Resuscitate Discharge Diet: Cardiac Discharge Activity: Activity As Tolerated, Balance Activity w/Rest Referrals: DAVID HAY MD [ACTIVE PROVISIONAL STAFF] - 10/28/19 10:00 am Prescriptions: Potassium Chloride [Klor-Con 10 Meq Tablet ER] 20 meq PO DAILY 30 Days #30 tablet.er Furosemide [Lasix 20 mg Tablet] 20 mg PO DAILY 30 Days #30 tablet Metoprolol Tartrate [Lopressor 50 mg Tablet] 50 mg PO Q12 30 Days #60 tablet Lisinopril [Prinivil 5 mg Tablet] 5 mg PO DAILY 30 Days #30 tablet Pantoprazole Sodium [Protonix [address] Tablet] 20 mg PO Q6AM 30 Days #30 tablet. Sertraline HCl [Zoloft 50 mg Tablet] 12.5 mg PO QHS 30 Days #30 tablet Home Medications: Apixaban [Eliquis 5 mg Tablet] 5 mg PO BID 09/27/19 Apixaban [Eliquis 5 mg Tablet] 5 mg PO BID tablet 10/01/19 Furosemide [Lasix 20 mg Tablet] 20 mg PO DAILY 30 Days #30 tablet 10/01/19 Lisinopril [Prinivil 5 mg Tablet] 5 mg PO DAILY 30 Days #30 tablet 10/01/19 Metoprolol Tartrate [Lopressor 50 mg Tablet] 50 mg PO Q12 30 Days #60 tablet 10/01/19 Pantoprazole Sodium [Protonix [address] Tablet] 20 mg PO Q6AM 30 Days #30 tablet. 10/01/19 Potassium Chloride [Klor-Con 10 Meq Tablet ER] 20 meq PO DAILY 30 Days #30 tablet.er 10/01/19 Sertraline HCl [Zoloft 50 mg Tablet] 12.5 mg PO QHS 30 Days #30 tablet 10/01/19 History of Present Illiness History of Present Illness: BRANDON RAYMUNDO is a 83 year old female 83 year old female with a history of hypertension and atrial fibrillation. The atrial fibrillation started approximately 8 months ago. She had a pacemaker implant approximately 4 years ago for chronic bradycardia. Patient reports that she was in the emergency department 1 week ago. She had similar symptoms but not this bad. She states that she has been getting lightheaded when she changes position. She has been quite fatigued and feeling weak. She has been slowly getting more short of breath. She did start to notice some swelling in the ext remities. The shortness of breath progressed until she was short of breath at rest. She denies chest pain, pressure or palpitations during the previous several weeks. She denies fever, chills or productive cough. Dr. Hay is her desolderer. Because of the recent diagnosis of atrial fibrillation she has been on metoprolol and Eliquis. On examination the emergency department she was found to have atrial fibrillation with rapid ventricular response. Chest x- ray revealed large left pleural effusion. Surprisingly she remains well oxygenated on room air. Laboratory studies reveal an elevated brain natruretic peptide at 2670. Her first troponin is 0.012. BUN is slightly elevated at 31. White blood cell count is 8.3 with a hemoglobin of 10.9 and platelet count of 250,000. Urinalysis is not reflective of an infection. The patient will be admitted to telemetry on the hospitalist service. Dr. Hay will consult. We will increase her metoprolol to achieve rate control. At this time her medications have not been reconciled and the patient did not know her current medication regimen. I have ordered as needed IV metoprolol until I can start her regular medication regimen. Hospital Course Hospital Course: 83 year old female with a history of hypertension and atrial fibrillation. The atrial fibrillation started approximately 8 months ago. She had a pacemaker implant approximately 4 years ago for chronic bradycardia. Patient reports that she was in the emergency department 1 week ago. She had similar symptoms but not this bad. She states that she has been getting lightheaded when she changes position. She has been quite fatigued and feeling weak. She has been slowly getting more short of breath. She did start to notice some swelling in the extremities. The shortness of breath progressed until she was short of breath at rest. She denies chest pain, pressure or palpitations during the previous several weeks. She denies fever, chills or productive cough. Dr. Hay is her desolderer. Because of the recent diagnosis of atrial fibrillation she has been on metoprolol and Eliquis. On examination the emergency department she was found to have atrial fibrillation with rapid ventricular response. Chest x- ray revealed large left pleural effusion. Surprisingly she remains well oxygenated on room air. Laboratory studies reveal an elevated brain natruretic peptide at 2670. Her first troponin is 0.012. BUN is slightly elevated at 31. White blood cell count is 8.3 with a hemoglobin of 10.9 and platelet count of 250,000. Urinalysis is not reflective of an infection. The patient will be admitted to telemetry on the hospitalist service. Dr. Hay will consult. We will increase her metoprolol to achieve rate control. At this time her medications have not been reconciled and the patient did not know her current medication regimen. I have ordered as needed IV metoprolol until I can start her regular medication regimen. 09/28/19-Still with tachycardia especially when she gets up. Remains on room air. 09/28-The patient reports that she feels the multiple medications, more than she has taken before, are upsetting her stomach. She continues to complain about a distended abdomen. She has not had a bowel movement in 4 days. She also reports that she normally takes sertraline and loratadine at home. 09/30/19-The patient is resting comfortably. She remains on room air. She states that she felt poorly this morning but after a bowel movement she felt better. Echocardiogram done earlier today reveals a pericardial effusion in addition to the pleural effusion noted on admission. 10/01/19-patient was kept n.p.o. last night for possible pericardiocentesis this morning. Dr. Trevino reviewed the echocardiogram report with Dr. Hay and the decision was not to do pericardiocentesis at this time. Patient was started back on Eliquis and as per cardiology patient is stable to go home today. Dr. Hay is going to see her in the office next week. Physical Exam Vital Signs: Temp Pulse Resp BP Pulse Ox 98.0 F 96 16 136/68 H 94 10/01/19 11:27 10/01/19 11:27 10/01/19 11:27 10/01/19 11:27 10/01/19 11:27 Intake & Output 09/30/19 10/01/19 10/02/19 06:59 06:59 06:59 Intake Total 968 633 5325 Balance 598 869 1647 Weight 68.3 kg 68.3 kg General appearance: PRESENT: no acute distress, well-developed Head exam: PRESENT: atraumatic Eye exam: PRESENT: PERRLA Mouth exam: PRESENT: moist, tongue midline Teeth exam: PRESENT: poor dentation Neck exam: ABSENT: carotid bruit, JVD, lymphadenopathy, thyromegaly Respiratory exam: PRESENT: decreased breath sounds Cardiovascular exam: PRESENT: irregular rhythm, tachycardia Pulses: PRESENT: normal dorsalis pedis pul GI/Abdominal exam: PRESENT: normal bowel sounds, soft. ABSENT: distended, guarding, mass, organolmegaly, rebound, tenderness Rectal exam: PRESENT: deferred Extremities exam: PRESENT: full ROM. ABSENT: calf tenderness, clubbing, pedal edema Neurological exam: PRESENT: alert, awake, oriented to person, oriented to place, oriented to time, oriented to situation, CN II-XII grossly intact. ABSENT: motor sensory deficit Psychiatric exam: PRESENT: appropriate affect, normal mood. ABSENT: homicidal ideation, suicidal ideation Skin exam: PRESENT: dry, intact, warm. ABSENT: cyanosis, rash Results Laboratory Results: WBC 8.7 10^3/uL (4.0-10.5) 09/28/19 03:44 RBC 3.79 10^6/uL (3.72-5.28) 09/28/19 03:44 Hgb 10.7 g/dL (12.0-15.5) L 09/28/19 03:44 Hct 31.6 % (36.0-47.0) L 09/28/19 03:44 MCV 83 fl (80-97) 09/28/19 03:44 MCH 28.1 pg (27.0-33.4) 09/28/19 03:44 MCHC 33.8 g/dL (32.0-36.0) 09/28/19 03:44 RDW 15.2 % (11.5-14.0) H 09/28/19 03:44 Plt Count 250 10^3/uL (150-450) 09/28/19 03:44 Lymph % (Auto) Not Reportable 09/28/19 03:44 Mora % (Auto) Not Reportable 09/28/19 03:44 Eos % (Auto) Not Reportable 09/28/19 03:44 Baso % (Auto) Not Reportable 09/28/19 03:44 Absolute Neuts (auto) Not Reportable 09/28/19 03:44 Absolute Lymphs (auto) Not Reportable 09/28/19 03:44 Absolute Monos (auto) Not Reportable 09/28/19 03:44 Absolute Eos (auto) Not Reportable 09/28/19 03:44 Absolute Basos (auto) Not Reportable 09/28/19 03:44 Total Counted 100 09/28/19 03:44 Seg Neutrophils % Not Reportable 09/28/19 03:44 Seg Neuts % (Manual) 76 % (42-78) 09/28/19 03:44 Band Neutrophils % 1 % (3-5) L 09/27/19 14:10 Lymphocytes % (Manual) 16 % (13-45) 09/28/19 03:44 Atypical Lymphs % 2 % (0) 09/28/19 03:44 Monocytes % (Manual) 5 % (3-13) 09/28/19 03:44 Eosinophils % (Manual) 0 % (0-6) 09/28/19 03:44 Basophils % (Manual) 0 % (0-2) 09/28/19 03:44 Metamyelocytes % 1 % (0-1) 09/28/19 03:44 Abs Neuts (Manual) 6.7 10^3/uL (1.7-8.2) 09/28/19 03:44 Abs Lymphs (Manual) 1.6 10^3/uL (0.5-4.7) 09/28/19 03:44 Abs Monocytes (Manual) 0.4 10^3/uL (0.1-1.4) 09/28/19 03:44 Absolute Eos (Manual) 0.0 10^3/uL (0.0-0.6) 09/28/19 03:44 Abs Basophils (Manual) 0.0 10^3/uL (0.0-0.2) 09/28/19 03:44 Clumped Platelets PRESENT 09/28/19 03:44 Large Platelets PRESENT 09/28/19 03:44 Giant Platelets PRESENT 09/28/19 03:44 Platelet Comment ADEQUATE 09/28/19 03:44 Polychromasia SLIGHT 09/27/19 14:10 Hypochromasia SLIGHT 09/28/19 03:44 Poikilocytosis SLIGHT 09/27/19 14:10 Anisocytosis SLIGHT 09/28/19 03:44 Ovalocytes SLIGHT 09/28/19 03:44 PT 16.0 SEC (11.4-15.4) H 10/01/19 10:34 INR 1.27 10/01/19 10:34 Sodium 138.3 mmol/L (137-145) 10/01/19 05:28 Potassium 4.0 mmol/L (3.6-5.0) 10/01/19 05:28 Chloride 102 mmol/L (98-107) 10/01/19 05:28 Carbon Dioxide 31 mmol/L (22-30) H 10/01/19 05:28 Anion Gap 5 (5-19) 10/01/19 05:28 BUN 29 mg/dL (7-20) H 10/01/19 05:28 Creatinine 0.69 mg/dL (0.52-1.25) 10/01/19 05:28 Est GFR ( Amer) > 60 (>60) 10/01/19 05:28 Est GFR (MDRD) Non-Af > 60 (>60) 10/01/19 05:28 Glucose 110 mg/dL (75-110) 10/01/19 05:28 Calcium 8.5 mg/dL (8.4-10.2) 10/01/19 05:28 Magnesium 1.9 mg/dL (1.6-2.3) 09/29/19 04:14 Total Bilirubin 0.9 mg/dL (0.2-1.3) 09/27/19 14:10 Direct Bilirubin 0.0 mg/dL (0.0-0.4) 09/27/19 14:10 Neonat Total Bilirubin Not Reportable 09/27/19 14:10 Neonat Direct Bilirubin Not Reportable 09/27/19 14:10 Neonat Indirect Bili Not Reportable 09/27/19 14:10 AST 34 U/L (14-36) 09/27/19 14:10 ALT 30 U/L (<35) 09/27/19 14:10 Alkaline Phosphatase 70 U/L (38-126) 09/27/19 14:10 Creatine Kinase 24 U/L (30-135) L 09/27/19 14:10 CK-MB (CK-2) 0.73 ng/mL (<4.55) 09/27/19 14:10 Troponin I < 0.012 ng/mL 09/28/19 03:44 NT-Pro-B Natriuret Pep 2670 pg/mL (<450) H 09/27/19 14:10 Total Protein 6.2 g/dL (6.3-8.2) L 09/27/19 14:10 Albumin 3.3 g/dL (3.5-5.0) L 09/27/19 14:10 Urine Color YELLOW 09/27/19 15:47 Urine Appearance CLEAR 09/27/19 15:47 Urine pH 5.0 (5.0-9.0) 09/27/19 15:47 Ur Specific Hurricane 1.029 09/27/19 15:47 Urine Protein 100 mg/dL (NEGATIVE) H 09/27/19 15:47 Urine Glucose (UA) NEGATIVE mg/dL (NEGATIVE) 09/27/19 15:47 Urine Ketones TRACE mg/dL (NEGATIVE) H 09/27/19 15:47 Urine Blood NEGATIVE (NEGATIVE) 09/27/19 15:47 Urine Nitrite NEGATIVE (NEGATIVE) 09/27/19 15:47 Urine Bilirubin NEGATIVE (NEGATIVE) 09/27/19 15:47 Urine Urobilinogen 4.0 mg/dL (<2.0) H 09/27/19 15:47 Ur Leukocyte Esterase NEGATIVE (NEGATIVE) 09/27/19 15:47 Urine WBC (Auto) 5 /HPF 09/27/19 15:47 Urine RBC (Auto) 5 /HPF 09/27/19 15:47 U Hyaline Cast (Auto) 8 /LPF 09/27/19 15:47 Urine Bacteria (Auto) TRACE /HPF 09/27/19 15:47 Squamous Epi Cells Auto 11 /HPF 09/27/19 15:47 Urine Mucus (Auto) MANY /LPF 09/27/19 15:47 Urine Ascorbic Acid 40 (NEGATIVE) H 09/27/19 15:47 09/27/19 09/27/19 09/27/19 14:10 14:10 21:36 CK-MB (CK-2) 0.73 Troponin I < 0.012 < 0.012 NT-Pro-B Natriuret Pep 2670 H 09/28/19 03:44 CK-MB (CK-2) Troponin I < 0.012 NT-Pro-B Natriuret Pep Impressions: Chest X-Ray 09/27/19 17:03 IMPRESSION: Cardiomegaly. Given unilaterality of pulmonary findings, favor infectious etiology. Plan Plan of Treatment: Patient is advised to continue Eliquis at home. She was also advised to follow- up with Dr. Hay next week. Descriptions for furosemide 20 mg p.o. daily, metoprolol 50 mg every 12 hours, lisinopril 5 mg daily along with sertraline and Protonix was given. Time Spent: Greater than 30 Minutes Stroke Is this a Stroke Patient?: No Acute Heart Failure - Is this a Heart Failure Patient?: No
== END 2019-10-01 12:39 | disposition home or self-care (01) | DRG 315 ==
LOC: ER 13:52 → EH 17:33 → 4N 20:51
PROVIDERS: ADMIT Hospitalist; ATTEND Internal Medicine
DX: I30.9 Acute pericarditis, unspecified (principal); J90 Pleural effusion, not elsewhere classified; I48.11 Longstanding persistent atrial fibrillation; R55 Syncope and collapse; F32.9 Major depressive disorder, single episode, unspecified; I10 Essential (primary) hypertension; J30.9 Allergic rhinitis, unspecified; F17.210 Nicotine dependence, cigarettes, uncomplicated; K59.00 Constipation, unspecified; I51.7 Cardiomegaly; Z66 Do not resuscitate; Z79.899 Other long term (current) drug therapy; Z79.01 Long term (current) use of anticoagulants; Z95.0 Presence of cardiac pacemaker; Z88.0 Allergy status to penicillin; Z88.1 Allergy status to other antibiotic agents; Z88.5 Allergy status to narcotic agent
CPT/HCPCS: 36415; 71045; 80048; 80053; 81001; 82550; 82553; 83735; 83880; 84484; 85025; 85610; 93005; 93010; 93306; 99285; J1940; J3490